=== PATIENT | female | born 1970 | race Hispanic/Latino ===

== ENCOUNTER 2017-12-28 14:39 | Observation (INO) | payer OTHER ==
[2017-12-28 14:39] VITALS: BMI 23.0
--- NOTE | 2017-12-28 16:00 | C.PDOC ---
History Of Present Illness 47yo female, history of anxiety, comes to ER with complaints of abdominal pain x 5 days. She also reports associated nausea, vomiting and non-bloody diarrhea. She states the pain initially started in her right back and now is present in her right abdomen. She denies any fever, chills, chest pain, and offers no additional medical complaints. Time Seen by Provider: 12/28/17 15:26 Chief Complaint (Nursing): Abdominal Pain History Per: Patient History/Exam Limitations: no limitations Onset/Duration Of Symptoms: Days (5) Current Symptoms Are (Timing): Still Present Location Of Pain/Discomfort: RUQ Quality Of Discomfort: Unable To Describe Associated Symptoms: Vomiting, Diarrhea. denies: Fever, Chills, Loss Of Appetite, Constipation, Urinary Symptoms Additional History Per: Patient Past Medical History Reviewed: Historical Data, Nursing Documentation, Vital Signs Vital Signs: Last Vital Signs Temp 98.9 F 12/28/17 19:01 Pulse 72 12/28/17 19:01 Resp 18 12/28/17 19:01 BP 131/93 H 12/28/17 19:01 Pulse Ox 100 12/28/17 19:36 - Medical History PMH: Anxiety Denies: Bipolar Disorder, Depression, Paranoia, Post Traumatic Stress Disorder, Schizophrenia Surgical History: No Surg Hx Family History: States: No Known Family Hx - Social History Hx Alcohol Use: Yes Hx Substance Use: Yes Review Of Systems Except As Marked, All Systems Reviewed And Found Negative. Constitutional: Negative for: Fever, Chills Cardiovascular: Negative for: Chest Pain Respiratory: Negative for: Shortness of Breath Gastrointestinal: Positive for: Vomiting, Abdominal Pain, Diarrhea. Negative for: Constipation, Hematochezia, Hematemesis Genitourinary: Negative for: Dysuria, Frequency, Hematuria Physical Exam - Physical Exam Appears: Non-toxic, No Acute Distress Skin: Normal Color, Warm, Dry Head: Atraumatic, Normacephalic Eye(s): bilateral: Normal Inspection, EOMI Neck: Normal ROM, Supple Chest: Symmetrical Cardiovascular: Rhythm Regular Respiratory: Normal Breath Sounds Gastrointestinal/Abdominal: Soft, Tenderness (Right upper quadrant tenderness, - Ly's sign), No Guarding, No Rebound Back: Normal Inspection, No CVA Tenderness Extremity: Normal ROM Neurological/Psych: Oriented x3 ED Course And Treatment - Laboratory Results Result Diagrams: 12/28/17 14:10 12/28/17 14:10 O2 Sat by Pulse Oximetry: 100 (RA) Pulse Ox Interpretation: Normal Medical Decision Making Medical Decision Making: Assessment: Abdominal pain Patient had US Abdomen on 11/13 which showed cholelithiasis. Plan: -- Labs -- UA -- US Abdominal -- Pepcid 20mg IV -- Toradol 30mg IV -- Zofran 4mg IV 1600 US Galbladder FINDINGS: LIVER: Measures 15.3 cm in length. Normal echogenicity of the liver parenchyma. No mass. No intrahepatic bile duct dilatation. GALLBLADDER: Gallbladder is distended. Cholelithiasis is identified within the lumen. No pericholecystic fluid, a reported sonographic Ly sign or other suspicious finding that may indicate cholecystitis however clinical correlation is recommended. COMMON BILE DUCT: Measures 3.1 mm. No stones. No dilatation. PANCREAS: Unremarkable as visualized. No mass. No ductal dilatation. RIGHT KIDNEY: Measures 9.8 cm in length. Normal echogenicity. No calculus, mass, or hydronephrosis. 1711 CT abdomen/pelvis w/ contrast ordered 1839 CT Abdomen/Pelvis FINDINGS: LOWER THORAX: Unremarkable. LIVER: Unremarkable. No gross lesion or ductal dilatation. GALLBLADDER AND BILE DUCTS: High density gallstones are seen. No evidence of acute cholecystitis or biliary obstruction. PANCREAS: Unremarkable. No gross lesion or ductal dilatation. SPLEEN: Unremarkable. ADRENALS: Unremarkable. No mass. KIDNEYS AND URETERS: Unremarkable. No hydronephrosis. No solid mass. VASCULATURE: Unremarkable. No aortic aneurysm. BOWEL: Suspicious for large bowel wall thickening. Correlate clinically for colitis. No evidence of small bowel obstruction. APPENDIX: No evidence of appendicitis. PERITONEUM: Unremarkable. No free fluid. No free air. LYMPH NODES: Unremarkable. No enlarged lymph nodes. BLADDER: Unremarkable. REPRODUCTIVE: Heterogeneous uterus likely contains fibroids. BONES: No acute fracture. OTHER FINDINGS: 1.7 centimeter fat containing umbilical ventral hernia is noted. IMPRESSION: Cholelithiasis without evidence of cholecystitis. Suspicious for large bowel wall thickening. Correlate clinically for colitis. No evidence of pancreatitis or appendicitis. Heterogeneous uterus likely contains fibroids. 1947 On re-evaluation, patient reports persistent nausea. Patient to be admitted to med-surg under hospitalist due to colitis, UTI and cholelithiasis. Disposition Discussed With : Adrian Boyce Doctor Will See Patient In The: Hospital Counseled Patient/Family Regarding: Studies Performed, Diagnosis - Disposition Disposition: HOSPITALIZED Disposition Time: 19:36 Condition: FAIR - Clinical Impression Clinical Impression: Colitis, UTI (urinary tract infection) - Scribe Statement The provider has reviewed the documentation as recorded by the Kenneth Marquis Provider Attestation: All medical record entries made by the Kenneth were at my direction and personally dictated by me. I have reviewed the chart and agree that the record accurately reflects my personal performance of the history, physical exam, medical decision making, and the department course for this patient. I have also personally directed, reviewed, and agree with the discharge instructions and disposition.
[2017-12-28 16:04] LABS: BASO # 0.1 K/uL (0.0-0.2); BASO % 0.5 % (0.0-2.0); HEMOGLOBIN 14.2 g/dL (11.0-16.0); LYMPH % 15.2 % (20.0-40.0); MEAN CELL VOLUME 93.9 fL (81.0-99.0); MEAN CORPUSCULAR HEMOGLOBIN 32.7 pg (27.0-31.0); MEAN CORPUSCULAR HGB CONC 34.8 g/dL (33.0-37.0); MEAN PLATELET VOLUME 8.8 fL (7.2-11.7); MONO # 1.1 K/uL (0.0-0.8); MONO % 8.1 % (0.0-10.0); NEUT % 76.2 % (50.0-75.0); RBC 4.35 Mil/uL (3.80-5.20); RED CELL DISTRIBUTION WIDTH 12.9 % (11.5-14.5); WHITE BLOOD COUNT 13.2 K/uL (4.8-10.8)
[2017-12-28 16:15] LABS: SQUAMOUS EPITHIAL 8 /hpf (0-5); URINE BACTERIA FEW (<OCC); URINE BILIRUBIN NEGATIVE (NEGATIVE); URINE BLOOD 1+ (NEGATIVE); URINE CLARITY Hazy (Clear); URINE COLOR Yellow (YELLOW); URINE GLUCOSE (UA) NORMAL (Normal); URINE LEUKOCYTE ESTERASE 1+ Leu/uL (Negative); URINE PROTEIN 1+ mg/dL (NEGATIVE); URINE UROBILINOGEN NORMAL mg/dL (0.2-1.0)
[2017-12-28 16:16] LABS: ALB/GLOB RATIO 1.7 (1.0-2.1); ALBUMIN 4.9 g/dL (3.5-5.0); ALT/SGPT 42 U/L (9-52); AST/SGOT 29 U/L (14-36); BLOOD UREA NITROGEN 15 mg/dL (7-17); CALCIUM 9.9 mg/dl (8.6-10.4); GFR AFRICAN-AMERICAN > 60; GFR NON-AFRICAN AMERICAN > 60; LIPASE 275 U/L (23-300)
[2017-12-28] MEDS ORDERED: Iohexol 350mg/ml 100 ML ONE (17:55)
--- NOTE | 2017-12-28 18:01 | US ---
Date of service: 12/28/2017 HISTORY: abd. pain COMPARISON: None. TECHNIQUE: Sonographic evaluation of the right upper quadrant of the abdomen. FINDINGS: LIVER: Measures 15.3 cm in length. Normal echogenicity of the liver parenchyma. No mass. No intrahepatic bile duct dilatation. GALLBLADDER: Gallbladder is distended. Cholelithiasis is identified within the lumen. No pericholecystic fluid, a reported sonographic Ly sign or other suspicious finding that may indicate cholecystitis however clinical correlation is recommended. COMMON BILE DUCT: Measures 3.1 mm. No stones. No dilatation. PANCREAS: Unremarkable as visualized. No mass. No ductal dilatation. RIGHT KIDNEY: Measures 9.8 cm in length. Normal echogenicity. No calculus, mass, or hydronephrosis. AORTA: No aneurysmal dilatation. IVC: Unremarkable. OTHER FINDINGS: None . IMPRESSION: Cholelithiasis identified within a distended gallbladder with the gallbladder otherwise unremarkable. Normal CBD caliber. No intrahepatic biliary dilatation or reported sonographic Ly sign. Remainder the examination appears unremarkable.
[2017-12-28] MEDS ORDERED: cefTRIAXone IV 1 gm in Dextros 50 ML IVPB ONE ×3 (18:03→18:32)
[2017-12-28] MEDS ORDERED: Potassium Chloride 20 mEq 100 ML ONE (18:03)
--- NOTE | 2017-12-28 18:41 | CT ---
Date of service: 12/28/2017 PROCEDURE: CT Abdomen and Pelvis with contrast HISTORY: abd. pain COMPARISON: Comparison is made to the previous same-day ultrasound of the right upper quadrant TECHNIQUE: Contrast dose: 100 mL Omnipaque 350. Axial and reformatted coronal and sagittal CT images of the abdomen and pelvis were obtained after IV and oral contrast administration. Radiation dose: Total exam DLP = 200.2 mGy-cm. This CT exam was performed using one or more of the following dose reduction techniques: Automated exposure control, adjustment of the mA and/or kV according to patient size, and/or use of iterative reconstruction technique. FINDINGS: LOWER THORAX: Unremarkable. LIVER: Unremarkable. No gross lesion or ductal dilatation. GALLBLADDER AND BILE DUCTS: High density gallstones are seen. No evidence of acute cholecystitis or biliary obstruction. PANCREAS: Unremarkable. No gross lesion or ductal dilatation. SPLEEN: Unremarkable. ADRENALS: Unremarkable. No mass. KIDNEYS AND URETERS: Unremarkable. No hydronephrosis. No solid mass. VASCULATURE: Unremarkable. No aortic aneurysm. BOWEL: Suspicious for large bowel wall thickening. Correlate clinically for colitis. No evidence of small bowel obstruction. APPENDIX: No evidence of appendicitis. PERITONEUM: Unremarkable. No free fluid. No free air. LYMPH NODES: Unremarkable. No enlarged lymph nodes. BLADDER: Unremarkable. REPRODUCTIVE: Heterogeneous uterus likely contains fibroids. BONES: No acute fracture. OTHER FINDINGS: 1.7 centimeter fat containing umbilical ventral hernia is noted. IMPRESSION: Cholelithiasis without evidence of cholecystitis. Suspicious for large bowel wall thickening. Correlate clinically for colitis. No evidence of pancreatitis or appendicitis. Heterogeneous uterus likely contains fibroids.
[2017-12-28] MEDS ORDERED: metroNIDAZOLE IV 500 mg/100 ml 500 MG/100 ML BAG IVPB STA (19:33)
[2017-12-28] MEDS ORDERED: metroNIDAZOLE IV 500 mg/100 ml 500 MG/100 ML BAG ONE (19:49)
--- NOTE | 2017-12-28 21:17 | CP.PCM.HP ---
<Radha Hodge - Last Filed: 12/29/17 04:01> History of Present Illness - History of Present Illness History of Present Illness: CC: Abdominal Pain HPI: Patient is a 47 year old female (LMP, 12/05/17), with history of cholelithiasis and anxiety, who presents to ED with bilateral lower abdominal pain and nausea that started last week Wednesday, (12/24/17). She has had 5 similar episodes in the last 2 years. Patient was seen at [facility] 2 days ago, with discharge ED diagnosis of colitis and cholelithiasis; she was discharge with script for imodium and "an antibiotic", which she did not fill. She says the pain often comes on about an hour after eating. In order to keep down what she consumes, patient has put herself on a liquid diet (water, pedialyte, gatorade) since the onset of this current episode. She denies taking any medications in attempts to alleviate her pain. Her pain is localized to the lower quadrants of her abdomen bilaterally with radiation to the RUQ. She describes a sequence to her symptoms, experiencing chills, then diarrhea, then non-billious vomiting. She has vomited 2-3 times per day since the onset of this episode. She smoked cannabis in attempts to relieve her symptoms, but found no relief. Her last menstrual period was 3 weeks ago; she has notice blood in her urine today, and is uncertain if she is on her period now. Patient admits to subjective fever, chills, palpitations, shortness of breath, abdominal pain, loose stool, nausea, vomiting, fatigue and lightheadedness. She denies chest pain, sick contact, recent sickness, urinary symptoms, hematochezia or dark stool. Code status: Full code, Proxy is her father ( Benjamin Tillman, ) PMD: None PMHx: Anxiety, ETOH abuse PSHx: Tubal ligation, reconstructive surgery of vagina/colon due to cyst (10 years ago) Family history * Grandfather: DM * Father: prostate cancer * Mother: ovarian cancer Medications: Denies Allergies: NKDA Social Hx: Lives alone, admits to > 20 years of tobacco use ( 4-5 cigarettes per day; quit 6 years ago), Binge drinking for a few years, sobriety for 6 years and daily marijuana use Present on Admission - Present on Admission Any Indicators Present on Admission: No Review of Systems - Constitutional Constitutional: Chills, Fatigue, Fever, Weakness. absent: Daytime Sleepiness, Headache, Increased Appetite - Cardiovascular Cardiovascular: Dyspnea, Lightheadedness, Palpitations. absent: Chest Pain, Chest Pain at Rest, Chest Pain with Activity, Diaphoresis, Dyspnea on Exertion, Irregular Heart Rhythm - Respiratory Respiratory: Dyspnea - Gastrointestinal Gastrointestinal: Abdominal Pain, Cramping, Diarrhea, Nausea, Vomiting. absent : Belching, Bloating, Change in Stool Character, Coffee Ground Emesis, Dysphagia , Fecal Incontinence, Hematochezia - Genitourinary Genitourinary: absent: Dysuria, Hematuria, Urinary Incontinence, Urinary Frequency, Urinary Hesitance, Urinary Urgency - Reproductive: Female Reproductive:Female: Cycle <21 Days - Musculoskeletal Musculoskeletal: absent: Muscle Weakness, Numbness, Stiffness - Integumentary Integumentary: absent: Rash, Jaundice - Neurological Neurological: Dizziness, Weakness - Psychiatric Psychiatric: Anxiety, Change in Appetite - Endocrine Endocrine: Fatigue, Palpitations Past Patient History - Infectious Disease Hx of Infectious Diseases: None - Tetanus Immunizations Tetanus Immunization: Unknown - Past Social History Smoking Status: Former Smoker - MUSCULOSKELETAL/RHEUMATOLOGICAL Hx Falls: No - PSYCHIATRIC Hx Anxiety: Yes Hx Bipolar Disorder: No Hx Depression: No Hx Paranoia: No Hx Post Traumatic Stress Disorder: No Hx Schizophrenia: No Hx Substance Use: Yes - SURGICAL HISTORY Hx Surgeries: Yes (vaginal cyst) - ANESTHESIA Hx Anesthesia: Yes Meds Allergies/Adverse Reactions: Allergies Allergy/AdvReac Type Severity Reaction Status Date / Time No Known Allergies Allergy Verified 12/28/17 14:48 Physical Exam - Constitutional Appears: No Acute Distress - Head Exam Head Exam: ATRAUMATIC, NORMAL INSPECTION - Eye Exam Eye Exam: EOMI, Normal appearance, PERRL - ENT Exam ENT Exam: Mucous Membranes Moist - Respiratory Exam Respiratory Exam: Clear to Auscultation Bilateral, NORMAL BREATHING PATTERN. absent: Chest Wall Tenderness, Decreased Breath Sounds, Rhonchi, Wheezes, Respiratory Distress - Cardiovascular Exam Cardiovascular Exam: REGULAR RHYTHM, +S1, +S2. absent: Tachycardia, Clicks, Diastolic murmur - GI/Abdominal Exam GI & Abdominal Exam: Soft, Tenderness Additional comments: Bilateral Lower abdomen tenderness on deep palpation Right sided abdomen tenderness deep palpation Negative ly sign - Extremities Exam Extremities exam: Positive for: normal inspection. Negative for: calf tenderness, pedal edema - Back Exam Back exam: NORMAL INSPECTION. absent: CVA tenderness (L), CVA tenderness (R) - Neurological Exam Neurological exam: Alert, CN II-XII Intact, Oriented x3 - Psychiatric Exam Psychiatric exam: Anxious - Skin Skin Exam: Normal Color Results - Vital Signs Recent Vital Signs: Last Vital Signs Temp 98.9 F 12/28/17 19:01 Pulse 72 12/28/17 19:01 Resp 18 12/28/17 19:01 BP 131/93 H 12/28/17 19:01 Pulse Ox 100 12/28/17 20:16 - Labs Result Diagrams: 12/28/17 14:10 12/28/17 14:10 Labs: Laboratory Results - last 24 hr 12/28/17 12/28/17 12/28/17 14:10 14:10 14:10 WBC 13.2 H RBC 4.35 Hgb 14.2 Hct 40.9 MCV 93.9 MCH 32.7 H MCHC 34.8 RDW 12.9 Plt Count 399 MPV 8.8 Neut % (Auto) 76.2 H Lymph % (Auto) 15.2 L [place] % (Auto) 8.1 Eos % (Auto) 0.0 Baso % (Auto) 0.5 Neut # (Auto) 10.0 H Lymph # (Auto) 2.0 [place] # (Auto) 1.1 H Eos # (Auto) 0.0 Baso # (Auto) 0.1 Sodium 136 Potassium 3.0 L Chloride 94 L Carbon Dioxide 28 Anion Gap 17 BUN 15 Creatinine 0.8 Est GFR ( Amer) > 60 Est GFR (Non-Af Amer) > 60 Random Glucose 113 H Calcium 9.9 Total Bilirubin 1.1 AST 29 ALT 42 Alkaline Phosphatase 61 Total Protein 7.8 Albumin 4.9 Globulin 2.9 Albumin/Globulin Ratio 1.7 Lipase 275 Urine Color Yellow Urine Clarity Hazy Urine pH 7.0 Ur Specific [place] 1.021 Urine Protein 1+ H Urine Glucose (UA) Normal Urine Ketones 1+ H Urine Blood 1+ H Urine Nitrate Positive H Urine Bilirubin Negative Urine Urobilinogen Normal Ur Leukocyte Esterase 1+ H Urine WBC (Auto) 11 H Urine RBC (Auto) 20 H Ur Squamous Epith Cells 8 H Urine Bacteria Few H Assessment & Plan (1) Colitis Assessment and Plan: Imaging: Abdomen/Pelvis IV contrast: Cholelithiasis without evidence of cholecystitis. Suspicious for large bowel wall thickening. Correlate clinically for colitis. No evidence of pancreatitis or appendicitis. Heterogeneous uterus likely contains fibroids.1.7 centimeter fat containing umbilical ventral hernia is noted Medications: * Cipro 400mg IV Q12H * Flagyl 500mg IV Q8H * NS @ 100mls/hr * Florastor 250mg PO BID Status: Acute (2) Leukocytosis Assessment and Plan: Possiblt secondary to colitis On admission: * WBC: 13.2 Medications: * Cipro 400mg IV Q12H * Flagyl 500mg IV Q8H * NS @ 100mls/hr * Florastor 250mg PO BID Continue to trend with am labs Status: Acute (3) UTI (urinary tract infection) Assessment and Plan: On admission: * UA: +1LE, +Nitrate * F/u urine culture Medications: * Cipro 400mg IV Q12H * NS @ 100mls/hr * Florastor 250mg PO BID Status: Acute (4) Cholelithiasis Assessment and Plan: Labs: * Liver enzymes WNL Imaging: * Gallbladder US: Cholelithiasis identified within a distended gallbladder with the gallbladder otherwise unremarkable. Normal CBD caliber. No intrahepatic biliary dilatation or reported sonographic Ly sign. Remainder the examination appears unremarkable. Mildly symptomatic, consideration for surgical evaluation for possible elective cholecystectomy Status: Acute (5) Nausea & vomiting Assessment and Plan: Zofran 4mg IV Q6H PRN Status: Acute (6) Diarrhea Assessment and Plan: F/u stool culture, ova/parasite, stool leukocytes, C-diff Status: Acute (7) Prophylactic measure Assessment and Plan: GI: Pepcid 20mg PO BID DVT: SCDs All plans and management discussed with Dr. Boyce Status: Acute <Adrian Boyce - Last Filed: 12/29/17 06:25> Results - Vital Signs Recent Vital Signs: Last Vital Signs Temp 98.9 F 12/28/17 23:45 Pulse 70 12/28/17 23:45 Resp 20 12/28/17 23:45 BP 130/72 12/28/17 23:45 Pulse Ox 98 12/28/17 23:45 - Labs Result Diagrams: 12/28/17 14:10 12/28/17 14:10 Labs: Laboratory Results - last 24 hr 12/28/17 12/28/17 12/28/17 14:10 14:10 14:10 WBC 13.2 H RBC 4.35 Hgb 14.2 Hct 40.9 MCV 93.9 MCH 32.7 H MCHC 34.8 RDW 12.9 Plt Count 399 MPV 8.8 Neut % (Auto) 76.2 H Lymph % (Auto) 15.2 L [place] % (Auto) 8.1 Eos % (Auto) 0.0 Baso % (Auto) 0.5 Neut # (Auto) 10.0 H Lymph # (Auto) 2.0 [place] # (Auto) 1.1 H Eos # (Auto) 0.0 Baso # (Auto) 0.1 Sodium 136 Potassium 3.0 L Chloride 94 L Carbon Dioxide 28 Anion Gap 17 BUN 15 Creatinine 0.8 Est GFR ( Amer) > 60 Est GFR (Non-Af Amer) > 60 Random Glucose 113 H Calcium 9.9 Total Bilirubin 1.1 AST 29 ALT 42 Alkaline Phosphatase 61 Total Protein 7.8 Albumin 4.9 Globulin 2.9 Albumin/Globulin Ratio 1.7 Lipase 275 Urine Color Yellow Urine Clarity Hazy Urine pH 7.0 Ur Specific [place] 1.021 Urine Protein 1+ H Urine Glucose (UA) Normal Urine Ketones 1+ H Urine Blood 1+ H Urine Nitrate Positive H Urine Bilirubin Negative Urine Urobilinogen Normal Ur Leukocyte Esterase 1+ H Urine WBC (Auto) 11 H Urine RBC (Auto) 20 H Ur Squamous Epith Cells 8 H Urine Bacteria Few H Assessment & Plan - Date & Time Date: 12/29/17 (I have seen and examined the patient. I agree with the findings and plan of care as documented by Dr. Hodge. Patient with colitis and UTI. Nausea and vomiting. Cipro and flagyl for now. Urine and blood cultures. Symptomatic treatment. Monitor for acute changes.) Time: 06:24 Attending/Attestation - Attestation I have personally seen and examined this patient.: Yes I have fully participated in the care of the patient.: Yes I have reviewed all pertinent clinical information: Yes
[2017-12-28] MEDS: Ciprofloxacin 400mg/200ml D5W 400 MG/200 ML BAG IVPB SCH (23:44)
[2017-12-28 23:47] VITALS: RESP 20
[2017-12-29] MEDS: Sodium Chloride 0.9% 1,000 ML IV SCH ×3 (00:12→13:33)
[2017-12-29] MEDS: metroNIDAZOLE IV 500 mg/100 ml 500 MG/100 ML BAG IVPB SCH ×3 (03:55→20:00)
[2017-12-29] MEDS ORDERED: Alum-Mag Hydrox-Simethicone Susp (30 mL) PO ONE (05:05)
--- NOTE | 2017-12-29 07:14 | CP.PCM.PN ---
<Trina Rebolledo V - Last Filed: 12/29/17 16:47> Objective - Vital Signs/Intake and Output Vital Signs (last 24 hours): Temp Pulse Resp BP Pulse Ox 98.4 F 61 20 136/85 99 12/29/17 15:30 12/29/17 15:30 12/29/17 15:30 12/29/17 15:30 12/29/17 15:30 - Medications Medications: Current Medications Enoxaparin Sodium (Lovenox) 40 mg SC DAILY [facility] Last Admin: 12/29/17 09:45 Dose: Not Given Famotidine (Pepcid) 20 mg PO BID [facility] Last Admin: 12/29/17 10:48 Dose: 20 mg Ciprofloxacin (Cipro 400mg/200ml Dsw) 400 mg in 200 mls @ 133 mls/hr IVPB Q12H ANGELINA PRN Reason: Protocol Last Admin: 12/29/17 14:49 Dose: 133 mls/hr Metronidazole (Flagyl) 500 mg in 100 mls @ 100 mls/hr IVPB Q8H ANGELINA PRN Reason: Protocol Last Admin: 12/29/17 12:31 Dose: 100 mls/hr Sodium Chloride (Sodium Chloride 0.9%) 1,000 mls @ 100 mls/hr IV .Q10H [facility] Last Admin: 12/29/17 13:33 Dose: 100 mls/hr Ondansetron HCl (Zofran Inj) 4 mg IVP Q6H PRN PRN Reason: Nausea/Vomiting Last Admin: 12/29/17 13:29 Dose: 4 mg Pneumococcal Polyvalent Vaccine (Pneumovax 23 Vaccine) 0.5 ml IM .ONCE ONE Stop: 12/30/17 10:01 Saccharomyces Boulardii (Florastor) 250 mg PO BID [facility] Last Admin: 12/29/17 10:48 Dose: 250 mg - Labs Labs: 12/29/17 07:33 12/29/17 07:33 Attending/Attestation - Attestation I have personally seen and examined this patient.: Yes I have fully participated in the care of the patient.: Yes I have reviewed all pertinent clinical information, including history, physical exam and plan: Yes Notes (Text): Patient seen, examined and case discussed with medical sales associate. Patient reports she has abdominal pain and nausea since she was recently evaluated at [facility] on Wednesday and discharged with Immodium and antibiotic. Patient denies any preciptating factors to cause her colitis. She denies any recent foods, denies take out foods, denies radiation, denies recent travel, and denies sick contacts. She reports unintentional weight loss about 10lbs. Patient reports she has had recurrent bouts of colitis this year wherein she has had to go to the hospital but has not seen a GI doctor for the recommended colonoscopy because she does have insurance. I did remind her to take the antibiotics if she has an infectious cause to her colitis. She is aware she has abnormal thickening associated with large bowel but she has not taken antibiotic. She reports since leaving the hospital ER on Wednesday, she felt dry, weak, has not had a bowel movement nor urine output. Patient reports she does feel anxious and does use cannabis about 1/8th ounce. She does not report any cyclic behavior in terms of nausea/vomitting in related to her cannabis but i did not advise her that this does not help her current problem. I have asked GI to assess patient since there is no clear etiology to her initial colitis. We have ordered for stool studies including ova and parasite, culture, and c. dif. General surgery has evaluated patient, no intervention at this time note. On my exam, patient does not have inspiratory arrest. I did explain to her she does have gallstones that can cause pain in the gallblader, but if that changes in frequency or she has a fever, that would require emergent surgery intervention which she understands. Patient denies symptoms of UTI, denies frequency, hematuria nor dysuria. Patient reports she has had bilateral tubal ligation in the past. I have also asked psych to evaluate her anxiety in light of her reliance on cannabis since she is currently not on any anti anxiolytics. Assessment/Plan (1) Colitis Assessment and Plan: * GI (Dr. Ambrocio) occupational therapist rehab manager-->help appreciated * Case discussed with GI fellow, will see the patient. * Abdomen/Pelvis IV contrast: Cholelithiasis without evidence of cholecystitis. Suspicious for large bowel wall thickening. Correlate clinically for colitis. * No evidence of pancreatitis or appendicitis. Heterogeneous uterus likely contains fibroids.1.7 centimeter fat containing umbilical ventral hernia is noted * Medications: * Cipro 400mg IV Q12H * Flagyl 500mg IV Q8H * NS @ 100mls/hr * Florastor 250mg PO BID * Follow-up stool studies Status: Acute (2) Leukocytosis Assessment and Plan: * Possible secondary to colitis * Patient is on IV abx to cover for colitis Medications: * Cipro 400mg IV Q12H * Flagyl 500mg IV Q8H * NS @ 100mls/hr * Florastor 250mg PO BID Status: Acute (3) Asymptomatic Bacturia Assessment and Plan: * Patient is not symptomatic of urinary tract infection * UA is contaminated sample; have repeated sample * Patient is on IV abx which would cover UTI if she was symptomatic * Florastor 250mg PO BID Status: Acute (4) Biliary Colic Cholelithiasis Assessment and Plan: * General surgery (Dr. Anderson)-->help appreciated * No acute intervention at this time * Imaging: Gallbladder US: Cholelithiasis identified within a distended gallbladder with the gallbladder otherwise unremarkable. Normal CBD caliber. No intrahepatic biliary dilatation or reported sonographic Ly sign. Remainder the examination appears unremarkable. Status: chronic (5) Nausea & vomiting Assessment and Plan: * Zofran 4mg IV Q6H PRN nausea * Patient reports nausea no vomitting episodes Status: Acute (6) Diarrhea Assessment and Plan: * F/u stool culture, ova/parasite, stool leukocytes, C-diff * patient reports diarrhea only on Wednesday but has not diarrheal episodes since the initial onset; will continue to monitor Status: Acute (7) Anxiety Assessment and Plan: * Psych (Dr. Gould) occupational therapist rehab manager-->help appreciated * f/u recommendations (8) Prophylactic measure Assessment and Plan: * GI ppx: Pepcid 20mg PO BID * DVT pxx: SCDs * NS 100cc/hr <Patrice Sagastume - Last Filed: 12/29/17 18:00> Subjective - Date & Time of Evaluation Date of Evaluation: 12/29/17 Time of Evaluation: 07:14 - Subjective Subjective: Medicine not for Dr. Rebolledo Pt seen and examined at bedside. Pt reports nausea, headache, dizziness and anxiety that comes with episodes of SOB. pt reports vomiting and diarrhea has stopped since yesterday. She reports being able to produces a small solid stool sample this morning. She reports persistent abdominal pain. Pt denies and chest pain, night sweats, fevers or loss of conscience. Objective - Vital Signs/Intake and Output Vital Signs (last 24 hours): Temp Pulse Resp BP Pulse Ox 98.9 F 70 20 130/72 98 12/28/17 23:45 12/28/17 23:45 12/28/17 23:45 12/28/17 23:45 12/28/17 23:45 - Medications Medications: Current Medications Famotidine (Pepcid) 20 mg PO BID [facility] Ciprofloxacin (Cipro 400mg/200ml Dsw) 400 mg in 200 mls @ 133 mls/hr IVPB Q12H ANGELINA PRN Reason: Protocol Last Admin: 12/28/17 23:44 Dose: 133 mls/hr Metronidazole (Flagyl) 500 mg in 100 mls @ 100 mls/hr IVPB Q8H ANGELINA PRN Reason: Protocol Last Admin: 12/29/17 03:55 Dose: 100 mls/hr Sodium Chloride (Sodium Chloride 0.9%) 1,000 mls @ 100 mls/hr IV .Q10H [facility] Last Admin: 12/29/17 00:12 Dose: 100 mls/hr Ondansetron HCl (Zofran Inj) 4 mg IVP Q6H PRN PRN Reason: Nausea/Vomiting Last Admin: 12/29/17 04:06 Dose: 4 mg Saccharomyces Boulardii (Florastor) 250 mg PO BID [facility] - Labs Labs: 12/28/17 14:10 12/28/17 14:10 - Constitutional Appears: Well, Non-toxic, No Acute Distress - Head Exam Head Exam: ATRAUMATIC, NORMAL INSPECTION - Eye Exam Eye Exam: EOMI, Normal appearance - ENT Exam ENT Exam: Mucous Membranes Moist - Respiratory Exam Respiratory Exam: Clear to Ausculation Bilateral, NORMAL BREATHING PATTERN. absent: Rales, Rhonchi, Respiratory Distress - Cardiovascular Exam Cardiovascular Exam: RRR, +S1, +S2 - GI/Abdominal Exam GI & Abdominal Exam: Soft, Tenderness, Normal Bowel Sounds. absent: Distended, Firm Additional comments: tenderness on deep palpation of RUQ - Extremities Exam Extremities Exam: Normal Inspection. absent: Joint Swelling, Pedal Edema, Tenderness - Back Exam Back Exam: NORMAL INSPECTION - Neurological Exam Neurological Exam: Alert, Awake, Oriented x3 - Psychiatric Exam Psychiatric exam: Anxious - Skin Skin Exam: Dry, Normal Color, Warm Assessment and Plan - Assessment and Plan (Free Text) Assessment: 47 yo Female with h/o cholelithiasis, colitis presenting with anxiety, abdominal pain, and nausea. Plan: Colitis -GI consulted: Dr Espinal recomendations- - Cont Cipro+Metronidazole - F/u stool infectious studies - Ordered Full Liquid Diet - Agree with Surgery consult, may benefit from cholecystectomy - Cont supportive care - Outpatient Colonoscopy in 8 week if able -Abdomen/Pelvis IV contrast: Cholelithiasis without evidence of cholecystitis. Suspicious for large bowel wall thickening. Correlate clinically for colitis. No evidence of pancreatitis or appendicitis. Heterogeneous uterus likely contains fibroids.1.7 centimeter fat containing umbilical ventral hernia is noted -Cipro 400mg IV Q12H started 12/28 -Flagyl 500mg IV Q8H started 12/28 -NS @ 100mls/hr -Florastor 250mg PO BID Cholelithiasis -Gallbladder US: Cholelithiasis identified within a distended gallbladder with the gallbladder otherwise unremarkable. Normal CBD caliber. No intrahepatic biliary dilatation or reported sonographic Ly sign. Remainder the examination appears unremarkable. -Mildly symptomatic, consideration for surgical evaluation for possible elective cholecystectomy Leukocytosis -Possibly secondary to colitis -WBC: 11 -Cipro 400mg IV Q12H -Flagyl 500mg IV Q8H -NS @ 100mls/hr -Florastor 250mg PO BID -Continue to trend with am labs UTI (urinary tract infection) -UA: +1LE, +Nitrate -urine culture pending -Cipro 400mg IV Q12H -IVF NS 100mls/hr -Florastor 250mg PO BID Nausea & vomiting: -Zofran 4mg IV Q6H PRN Diarrhea resolved Prophylactic measure -GI: Pepcid 20mg PO BID -DVT: SCDs disposition: Pt currently undergoing IV abx for collitits, f/u stool and urine cultures
[2017-12-29 07:53] LABS: BASO % 0.4 % (0.0-2.0); EOS % 0.1 % (0.0-4.0); HEMOGLOBIN 13.4 g/dL (11.0-16.0); LYMPH # 1.7 K/uL (1.0-4.3); LYMPH % 15.8 % (20.0-40.0); MEAN CELL VOLUME 93.7 fL (81.0-99.0); MEAN CORPUSCULAR HGB CONC 35.2 g/dL (33.0-37.0); MONO % 9.3 % (0.0-10.0); NEUT # 8.2 K/uL (1.8-7.0); NEUT % 74.4 % (50.0-75.0); RBC 4.07 Mil/uL (3.80-5.20); RED CELL DISTRIBUTION WIDTH 12.3 % (11.5-14.5)
[2017-12-29 08:10] LABS: ALB/GLOB RATIO 1.7 (1.0-2.1); ALBUMIN 4.3 g/dL (3.5-5.0); ALT/SGPT 38 U/L (9-52); AST/SGOT 28 U/L (14-36); BLOOD UREA NITROGEN 12 mg/dL (7-17); CALCIUM 8.9 mg/dl (8.6-10.4); GFR AFRICAN-AMERICAN > 60; GFR NON-AFRICAN AMERICAN > 60
--- NOTE | 2017-12-29 09:07 | CP.PCM.CON ---
History of Present Illness - History of Present Illness History of Present Illness: Ms. Tillman is a 47yoF with PMH of anxiety, EtOH abuse, gallstones complaining today of diffuse abdominal pain worst in the LLQ>RUQ. The intermittent pain has come and gone for the last week, and she's been hospitalized for it multiple times over the last 2 years and [facility], [facility], and [facility]. The pain has increased over the last 3 days, leading her to vomit at least 5 times a day. The vomit is the color of what she has been eating and has become water and green since she has stopped eating. She describes the pain as being on fire, starting from a back, and radiating inside toward the front, grading it a 8/10 at its worst. She tried Imodium, Pepto bismol, mint and jeremiah tea, smoking marijuana to no avail in relieving the pain. She complains of additional suprapubic cramping that she associates with her period starting yesterday. Admits chills, fatigue, decreased appetite, nausea, vomiting, diarrhea. Denies fever, headache, changes in vision or hearing , CP, palpitations, cough, swelling, sick contacts. Review of Systems - Constitutional Constitutional: Chills, Fatigue, Lethargy, Malaise. absent: Excessive Sweating , Fever, Frequent Falls, Headache - EENT Eyes: absent: Blurred Vision, Change in Vision, Diplopia, Discharge, Loss of Peripheral Vision, Loss of Vision Ears: absent: Decreased Hearing, Tinnitus Nose/Mouth/Throat: absent: Nasal Trauma, Bleeding Gums, Dry Mouth, Dysphagia, Tongue Swelling - Cardiovascular Cardiovascular: Dyspnea. absent: Chest Pain, Chest Pain at Rest, Dyspnea on Exertion, Edema, Pain Radiating to Arm/Neck/Jaw, Lightheadedness, Palpitations - Respiratory Respiratory: absent: Cough, Dyspnea, Pain on Inspiration - Gastrointestinal Gastrointestinal: Constipation, Diarrhea, Nausea, Vomiting. absent: Coffee Ground Emesis, Hematochezia, Melena - Genitourinary Genitourinary: absent: Difficulty Urinating, Dysuria, Hematuria, Pyuria, Urinary Urgency - Musculoskeletal Musculoskeletal: absent: Joint Swelling, Myalgias, Neck Pain, Numbness, Tingling - Integumentary Integumentary: absent: Change in Nails, Dry Skin, Sores, Swelling - Neurological Neurological: Weakness. absent: Confusion, Disequilibrium, Dizziness, Headaches , Tingling - Psychiatric Psychiatric: Anxiety, Panic Attacks. absent: Depression, Hallucinations, Mood Swings - Endocrine Endocrine: Fatigue. absent: Flushing, Palpitations - Hematologic/Lymphatic Hematologic: absent: Easy Bleeding, Easy Bruising Past Patient History - Infectious Disease Hx of Infectious Diseases: None - Tetanus Immunizations Tetanus Immunization: Unknown - Past Social History Smoking Status: Former Smoker Alcohol: None Drugs: Cannabis - MUSCULOSKELETAL/RHEUMATOLOGICAL Hx Falls: No - PSYCHIATRIC Hx Anxiety: Yes Hx Bipolar Disorder: No Hx Depression: No Hx Paranoia: No Hx Post Traumatic Stress Disorder: No Hx Schizophrenia: No Hx Substance Use: Yes - SURGICAL HISTORY Hx Surgeries: Yes (vaginal cyst) - ANESTHESIA Hx Anesthesia: Yes Meds Allergies/Adverse Reactions: Allergies Allergy/AdvReac Type Severity Reaction Status Date / Time No Known Allergies Allergy Verified 12/28/17 14:48 - Medications Medications: Current Medications Enoxaparin Sodium (Lovenox) 40 mg SC DAILY [facility] Famotidine (Pepcid) 20 mg PO BID [facility] Ciprofloxacin (Cipro 400mg/200ml Dsw) 400 mg in 200 mls @ 133 mls/hr IVPB Q12H ANGELINA PRN Reason: Protocol Last Admin: 12/28/17 23:44 Dose: 133 mls/hr Metronidazole (Flagyl) 500 mg in 100 mls @ 100 mls/hr IVPB Q8H ANGELINA PRN Reason: Protocol Last Admin: 12/29/17 03:55 Dose: 100 mls/hr Sodium Chloride (Sodium Chloride 0.9%) 1,000 mls @ 100 mls/hr IV .Q10H [facility] Last Admin: 12/29/17 00:12 Dose: 100 mls/hr Ondansetron HCl (Zofran Inj) 4 mg IVP Q6H PRN PRN Reason: Nausea/Vomiting Last Admin: 12/29/17 04:06 Dose: 4 mg Saccharomyces Boulardii (Florastor) 250 mg PO BID [facility] Physical Exam - Constitutional Appears: Non-toxic, No Acute Distress - Head Exam Head Exam: ATRAUMATIC, NORMOCEPHALIC - Eye Exam Eye Exam: EOMI, Normal appearance - ENT Exam ENT Exam: Mucous Membranes Dry - Neck Exam Neck exam: Positive for: Normal Inspection. Negative for: Lymphadenopathy - Respiratory Exam Respiratory Exam: Clear to Auscultation Bilateral, NORMAL BREATHING PATTERN. absent: Rales, Rhonchi - Cardiovascular Exam Cardiovascular Exam: REGULAR RHYTHM, +S1, +S2. absent: Systolic Murmur - GI/Abdominal Exam GI & Abdominal Exam: Distended, Hyperactive Bowel Sounds, Soft, Tenderness. absent: Firm, Guarding, Rebound Additional comments: tenderness to superficial and deep palpation LLQ>RUQ appropriate tympani throughout unable to elicit Ly's sign - able to take full inspiration without splinting negative obturator sign, negative - Extremities Exam Extremities exam: Positive for: full ROM, normal capillary refill, normal inspection - Back Exam Back exam: absent: CVA tenderness (L), CVA tenderness (R) - Neurological Exam Neurological exam: Alert, Normal Gait, Oriented x3, Reflexes Normal - Psychiatric Exam Psychiatric exam: Anxious - Skin Skin Exam: Dry, Intact, Pallor, Warm Results - Vital Signs Recent Vital Signs: Last Vital Signs Temp 98.3 F 12/29/17 08:40 Pulse 62 12/29/17 08:40 Resp 20 12/29/17 08:40 BP 150/92 H 12/29/17 08:40 Pulse Ox 99 12/29/17 08:40 - Labs Result Diagrams: 12/29/17 07:33 12/29/17 07:33 Labs: Laboratory Results - last 24 hr 12/28/17 12/28/17 12/28/17 14:10 14:10 14:10 WBC 13.2 H RBC 4.35 Hgb 14.2 Hct 40.9 MCV 93.9 MCH 32.7 H MCHC 34.8 RDW 12.9 Plt Count 399 MPV 8.8 Neut % (Auto) 76.2 H Lymph % (Auto) 15.2 L Sawyer % (Auto) 8.1 Eos % (Auto) 0.0 Baso % (Auto) 0.5 Neut # (Auto) 10.0 H Lymph # (Auto) 2.0 Sawyer # (Auto) 1.1 H Eos # (Auto) 0.0 Baso # (Auto) 0.1 Sodium 136 Potassium 3.0 L Chloride 94 L Carbon Dioxide 28 Anion Gap 17 BUN 15 Creatinine 0.8 Est GFR ( Amer) > 60 Est GFR (Non-Af Amer) > 60 Random Glucose 113 H Calcium 9.9 Phosphorus Magnesium Total Bilirubin 1.1 AST 29 ALT 42 Alkaline Phosphatase 61 Total Protein 7.8 Albumin 4.9 Globulin 2.9 Albumin/Globulin Ratio 1.7 Lipase 275 Urine Color Yellow Urine Clarity Hazy Urine pH 7.0 Ur Specific [place] 1.021 Urine Protein 1+ H Urine Glucose (UA) Normal Urine Ketones 1+ H Urine Blood 1+ H Urine Nitrate Positive H Urine Bilirubin Negative Urine Urobilinogen Normal Ur Leukocyte Esterase 1+ H Urine WBC (Auto) 11 H Urine RBC (Auto) 20 H Ur Squamous Epith Cells 8 H Urine Bacteria Few H 12/29/17 12/29/17 07:33 07:33 WBC 11.0 H RBC 4.07 Hgb 13.4 Hct 38.2 MCV 93.7 MCH 33.0 H MCHC 35.2 RDW 12.3 Plt Count 344 MPV 9.0 Neut % (Auto) 74.4 Lymph % (Auto) 15.8 L [place]yer % (Auto) 9.3 Eos % (Auto) 0.1 Baso % (Auto) 0.4 Neut # (Auto) 8.2 H Lymph # (Auto) 1.7 Sawyer # (Auto) 1.0 H Eos # (Auto) 0.0 Baso # (Auto) 0.0 Sodium 134 Potassium 3.4 L Chloride 99 Carbon Dioxide 20 L Anion Gap 18 BUN 12 Creatinine 0.7 Est GFR ( Amer) > 60 Est GFR (Non-Af Amer) > 60 Random Glucose 101 Calcium 8.9 Phosphorus 3.2 Magnesium 1.9 Total Bilirubin 1.0 AST 28 ALT 38 Alkaline Phosphatase 46 Total Protein 6.9 Albumin 4.3 Globulin 2.5 Albumin/Globulin Ratio 1.7 Lipase Urine Color Urine Clarity Urine pH Ur Specific [place] Urine Protein Urine Glucose (UA) Urine Ketones Urine Blood Urine Nitrate Urine Bilirubin Urine Urobilinogen Ur Leukocyte Esterase Urine WBC (Auto) Urine RBC (Auto) Ur Squamous Epith Cells Urine Bacteria Assessment & Plan - Assessment and Plan (Free Text) Plan: 47F with cholelithiasis without evidence of cholecystitis Imaging shows no signs of acute cholecystitis Unable to elicit physical exam findings indicative of cholecystitis Should consider outpt elective cholecystectomy to prevent future biliary colic pain episodes no acute surgical intervention at this time medical management per primary f/u GI recs for colitis - cont with abx for now consider psych recommendation for anxiety will follow until cultures return remain NPO on IV [id number] maintenance fluids bowel rest advance diet as tolerated d/w Dr. Monica Matthew PGY1 - Date & Time Date: 12/29/17 Time: 08:00
[2017-12-29] MEDS ORDERED: Potassium Chloride 20 mEq ER Tab PO ONE (09:23)
[2017-12-29] MEDS: Enoxaparin 40 mg Syringe SC SCH (09:45)
[2017-12-29 10:21] LABS: HCG,QUALITATIVE URINE NEGATIVE (NEGATIVE)
[2017-12-29 10:36] LABS: SQUAMOUS EPITHIAL 12 /hpf (0-5); URINE AMORPHOUS SEDIMENT FEW /ul (<OCC); URINE BACTERIA OCC (<OCC); URINE BILIRUBIN NEGATIVE (NEGATIVE); URINE BLOOD 2+ (NEGATIVE); URINE CLARITY Hazy (Clear); URINE COLOR Yellow (YELLOW); URINE GLUCOSE (UA) NORMAL (Normal); URINE LEUKOCYTE ESTERASE TRACE Leu/uL (Negative); URINE PROTEIN 1+ mg/dL (NEGATIVE); URINE UROBILINOGEN NORMAL mg/dL (0.2-1.0)
[2017-12-29] MEDS: Saccharomyces Boulardi 250 mg Cap PO SCH ×2 (10:48→17:36)
[2017-12-29] MEDS: Ciprofloxacin 400mg/200ml D5W 400 MG/200 ML BAG IVPB SCH ×3 (11:34→23:53)
[2017-12-29 12:45] LABS: C DIFF TOXIN A B NEGATIVE (NEGATIVE)
--- NOTE | 2017-12-29 13:32 | CP.PCM.CON ---
<JefersonPhilippe - Last Filed: 12/29/17 14:40> History of Present Illness - History of Present Illness History of Present Illness: PGY-4 GI Fellow Initial Consult Note Mrs. Tillman is a 47 yo WF with h/o Anxiety, Cholelithiasis and Colitis presenting with abdominal pain and diarrhea. She states she has been having bouts of "Colitis" where she has burning abdominal pain, mostly in her lower quadrants, associate with nausea, lightheadedness and diarrhea. She states diarrhea is mostly watery or brown, but thinks a few times there may have been blood. Usually she cannot identify and precipitating or alleviating factors, but she reports that symptoms this time around seemed to be worse about 1 hr after eating. She states symptomg are nearly constant for days and eventually get better on their own; unsure if antibiotics that she is often given help or not. She has tried marijuana without help. She denied any change in diet, recent travel nor antibiotic use. She does report some recent stress after her daughter recently returned from rehab and her symptoms began shortly thereafter. She denies any melena, hematochezia, hematemesis, vision changes, eye pain, rashes, oral ulcers or joint pain. She has been told she needs a colonoscopy but has never followed through due to lack of insurance. Recently, she was [place] [facility] diagnosed with colitis and cholelithiasis and given a prescription for immodium and unknown antibiotic which she did not fill, again due to insurance issue. She subsequently presented to [facility] for further evaluation. Since admission, her diarrhea has slowed and her main complaint at this time is persistent nausea. 12 point ROS negative other than stated above MHx: See above SurgHx: Tubal ligation, Cyst removal between colon and vagina (no colon removed) . Meds: None as OP FamHx: Mother with Ovarian CA, Father with Prostate CA SocHx: H/o tobacco and EtOH Abuse but sober for years, + MJ All: NKDA Past Patient History - Infectious Disease Hx of Infectious Diseases: None - Tetanus Immunizations Tetanus Immunization: Unknown - Past Social History Smoking Status: Former Smoker Alcohol: None Drugs: Cannabis - MUSCULOSKELETAL/RHEUMATOLOGICAL Hx Falls: No - PSYCHIATRIC Hx Anxiety: Yes Hx Bipolar Disorder: No Hx Depression: No Hx Paranoia: No Hx Post Traumatic Stress Disorder: No Hx Schizophrenia: No Hx Substance Use: Yes - SURGICAL HISTORY Hx Surgeries: Yes (vaginal cyst) - ANESTHESIA Hx Anesthesia: Yes Meds Allergies/Adverse Reactions: Allergies Allergy/AdvReac Type Severity Reaction Status Date / Time No Known Allergies Allergy Verified 12/28/17 14:48 - Medications Medications: Current Medications Enoxaparin Sodium (Lovenox) 40 mg SC DAILY [facility] Last Admin: 12/29/17 09:45 Dose: Not Given Famotidine (Pepcid) 20 mg PO BID [facility] Last Admin: 12/29/17 10:48 Dose: 20 mg Ciprofloxacin (Cipro 400mg/200ml Dsw) 400 mg in 200 mls @ 133 mls/hr IVPB Q12H [facility] PRN Reason: Protocol Last Admin: 12/29/17 11:34 Dose: Not Given Metronidazole (Flagyl) 500 mg in 100 mls @ 100 mls/hr IVPB Q8H [facility] PRN Reason: Protocol Last Admin: 12/29/17 03:55 Dose: 100 mls/hr Sodium Chloride (Sodium Chloride 0.9%) 1,000 mls @ 100 mls/hr IV .Q10H [facility] Last Admin: 12/29/17 09:59 Dose: Not Given Ondansetron HCl (Zofran Inj) 4 mg IVP Q6H PRN PRN Reason: Nausea/Vomiting Last Admin: 12/29/17 04:06 Dose: 4 mg Pneumococcal Polyvalent Vaccine (Pneumovax 23 Vaccine) 0.5 ml IM .ONCE ONE Stop: 12/30/17 10:01 Saccharomyces Boulardii (Florastor) 250 mg PO BID [facility] Last Admin: 12/29/17 10:48 Dose: 250 mg Physical Exam - Constitutional Appears: Non-toxic, No Acute Distress - Head Exam Head Exam: ATRAUMATIC, NORMAL INSPECTION - Eye Exam Eye Exam: EOMI. absent: Conjunctival injection, Scleral icterus - ENT Exam ENT Exam: Mucous Membranes Dry, Normal External Ear Exam. absent: Mucous Membranes Moist - Respiratory Exam Respiratory Exam: Clear to Auscultation Bilateral, NORMAL BREATHING PATTERN. absent: Accessory Muscle Use, Wheezes, Stridor - Cardiovascular Exam Cardiovascular Exam: REGULAR RHYTHM, RRR. absent: Bradycardia, Tachycardia, Systolic Murmur - GI/Abdominal Exam GI & Abdominal Exam: Normal Bowel Sounds, Organomegaly, Soft, Tenderness (ttp in LLQ w/o guarding). absent: Bruit, Diminished Bowel Sounds, Distended, Firm, Guarding, Hernia, Hyperactive Bowel Sounds, Hypoactive Bowel Sounds, Mass, Pulsatile Mass, Rebound, Rigid - Rectal Exam Rectal Exam: Deferred - Extremities Exam Extremities exam: Positive for: normal inspection. Negative for: pedal edema - Neurological Exam Neurological exam: Alert, CN II-XII Intact, Oriented x3 - Psychiatric Exam Psychiatric exam: Normal Affect, Normal Mood - Skin Skin Exam: Normal Color, Warm Results - Vital Signs Recent Vital Signs: Last Vital Signs Temp 98.3 F 12/29/17 08:40 Pulse 62 12/29/17 08:40 Resp 20 12/29/17 08:40 BP 150/92 H 12/29/17 08:40 Pulse Ox 99 12/29/17 08:40 - Labs Result Diagrams: 12/29/17 07:33 12/29/17 07:33 Labs: Laboratory Results - last 24 hr 12/28/17 12/28/17 12/28/17 14:10 14:10 14:10 WBC 13.2 H RBC 4.35 Hgb 14.2 Hct 40.9 MCV 93.9 MCH 32.7 H MCHC 34.8 RDW 12.9 Plt Count 399 MPV 8.8 Neut % (Auto) 76.2 H Lymph % (Auto) 15.2 L Castro % (Auto) 8.1 Eos % (Auto) 0.0 Baso % (Auto) 0.5 Neut # (Auto) 10.0 H Lymph # (Auto) 2.0 Castro # (Auto) 1.1 H Eos # (Auto) 0.0 Baso # (Auto) 0.1 Sodium 136 Potassium 3.0 L Chloride 94 L Carbon Dioxide 28 Anion Gap 17 BUN 15 Creatinine 0.8 Est GFR ( Amer) > 60 Est GFR (Non-Af Amer) > 60 Random Glucose 113 H Calcium 9.9 Phosphorus Magnesium Total Bilirubin 1.1 AST 29 ALT 42 Alkaline Phosphatase 61 Total Protein 7.8 Albumin 4.9 Globulin 2.9 Albumin/Globulin Ratio 1.7 Lipase 275 Urine Color Yellow Urine Clarity Hazy Urine pH 7.0 Ur Specific [place] 1.021 Urine Protein 1+ H Urine Glucose (UA) Normal Urine Ketones 1+ H Urine Blood 1+ H Urine Nitrate Positive H Urine Bilirubin Negative Urine Urobilinogen Normal Ur Leukocyte Esterase 1+ H Urine WBC (Auto) 11 H Urine RBC (Auto) 20 H Ur Squamous Epith Cells 8 H Amorphous Sediment Urine Bacteria Few H Urine HCG, Qual C. difficile Ag & Toxin 12/28/17 12/29/17 12/29/17 Unknown 07:33 07:33 WBC 11.0 H RBC 4.07 Hgb 13.4 Hct 38.2 MCV 93.7 MCH 33.0 H MCHC 35.2 RDW 12.3 Plt Count 344 MPV 9.0 Neut % (Auto) 74.4 Lymph % (Auto) 15.8 L Castro % (Auto) 9.3 Eos % (Auto) 0.1 Baso % (Auto) 0.4 Neut # (Auto) 8.2 H Lymph # (Auto) 1.7 Castro # (Auto) 1.0 H Eos # (Auto) 0.0 Baso # (Auto) 0.0 Sodium 134 Potassium 3.4 L Chloride 99 Carbon Dioxide 20 L Anion Gap 18 BUN 12 Creatinine 0.7 Est GFR ( Amer) > 60 Est GFR (Non-Af Amer) > 60 Random Glucose 101 Calcium 8.9 Phosphorus 3.2 Magnesium 1.9 Total Bilirubin 1.0 AST 28 ALT 38 Alkaline Phosphatase 46 Total Protein 6.9 Albumin 4.3 Globulin 2.5 Albumin/Globulin Ratio 1.7 Lipase Urine Color Urine Clarity Urine pH Ur Specific [place] Urine Protein Urine Glucose (UA) Urine Ketones Urine Blood Urine Nitrate Urine Bilirubin Urine Urobilinogen Ur Leukocyte Esterase Urine WBC (Auto) Urine RBC (Auto) Ur Squamous Epith Cells Amorphous Sediment Urine Bacteria Urine HCG, Qual C. difficile Ag & Toxin Negative 12/29/17 10:02 WBC RBC Hgb Hct MCV MCH MCHC RDW Plt Count MPV Neut % (Auto) Lymph % (Auto) Castro % (Auto) Eos % (Auto) Baso % (Auto) Neut # (Auto) Lymph # (Auto) Castro # (Auto) Eos # (Auto) Baso # (Auto) Sodium Potassium Chloride Carbon Dioxide Anion Gap BUN Creatinine Est GFR ( Amer) Est GFR (Non-Af Amer) Random Glucose Calcium Phosphorus Magnesium Total Bilirubin AST ALT Alkaline Phosphatase Total Protein Albumin Globulin Albumin/Globulin Ratio Lipase Urine Color Yellow Urine Clarity Hazy Urine pH 7.0 Ur Specific [place] 1.027 Urine Protein 1+ H Urine Glucose (UA) Normal Urine Ketones 2+ H Urine Blood 2+ H Urine Nitrate Negative Urine Bilirubin Negative Urine Urobilinogen Normal Ur Leukocyte Esterase Trace Urine WBC (Auto) 13 H Urine RBC (Auto) 6 H Ur Squamous Epith Cells 12 H Amorphous Sediment Few H Urine Bacteria Occ H Urine HCG, Qual Negative C. difficile Ag & Toxin Assessment & Plan - Assessment and Plan (Free Text) Assessment: 47 yo WF with h/o cholelithiasis, colitis presenting with abdominal pain, losse stools and nausea. # Abd Pain, Diarrhea, Nausea: All likely related to colitis seen on CT. Unclear etiology at this point but given recurrent episode over last few years of mostly watery diarrhea raises concerns for IBD, more likely Crohns. IBS also possible with recent stress trigger, but organic disease seen on CT which is not compatible and stress can be trigger for IBD. Infectious colitis also possible but the recurrent nature is atypical. Would benefit from colonoscopy down the line. Plan: - Cont Cipro+Metronidazole - F/u stool infectious studies - Ordered Full Liquid Diet - Agree with Surgery consult, may benefit from cholecystectomy - Cont supportive care - Outpatient Colonoscopy in 8 week if able Pt seen and examined with Dr. Daigle <Thien Daigle - Last Filed: 12/29/17 17:12> Meds - Medications Medications: Current Medications Enoxaparin Sodium (Lovenox) 40 mg SC DAILY [facility] Last Admin: 12/29/17 09:45 Dose: Not Given Famotidine (Pepcid) 20 mg PO BID [facility] Last Admin: 12/29/17 10:48 Dose: 20 mg Ciprofloxacin (Cipro 400mg/200ml Dsw) 400 mg in 200 mls @ 133 mls/hr IVPB Q12H [facility] PRN Reason: Protocol Last Admin: 12/29/17 14:49 Dose: 133 mls/hr Metronidazole (Flagyl) 500 mg in 100 mls @ 100 mls/hr IVPB Q8H [facility] PRN Reason: Protocol Last Admin: 12/29/17 12:31 Dose: 100 mls/hr Sodium Chloride (Sodium Chloride 0.9%) 1,000 mls @ 100 mls/hr IV .Q10H [facility] Last Admin: 12/29/17 13:33 Dose: 100 mls/hr Ondansetron HCl (Zofran Inj) 4 mg IVP Q6H PRN PRN Reason: Nausea/Vomiting Last Admin: 12/29/17 13:29 Dose: 4 mg Pneumococcal Polyvalent Vaccine (Pneumovax 23 Vaccine) 0.5 ml IM .ONCE ONE Stop: 12/30/17 10:01 Saccharomyces Boulardii (Florastor) 250 mg PO BID [facility] Last Admin: 12/29/17 10:48 Dose: 250 mg Results - Vital Signs Recent Vital Signs: Last Vital Signs Temp 98.4 F 12/29/17 15:30 Pulse 61 12/29/17 15:30 Resp 20 12/29/17 15:30 BP 136/85 12/29/17 15:30 Pulse Ox 99 12/29/17 15:30 - Labs Result Diagrams: 12/29/17 07:33 12/29/17 07:33 Labs: Laboratory Results - last 24 hr 12/28/17 12/29/17 12/29/17 Unknown 07:33 07:33 WBC 11.0 H RBC 4.07 Hgb 13.4 Hct 38.2 MCV 93.7 MCH 33.0 H MCHC 35.2 RDW 12.3 Plt Count 344 MPV 9.0 Neut % (Auto) 74.4 Lymph % (Auto) 15.8 L Castro % (Auto) 9.3 Eos % (Auto) 0.1 Baso % (Auto) 0.4 Neut # (Auto) 8.2 H Lymph # (Auto) 1.7 Castro # (Auto) 1.0 H Eos # (Auto) 0.0 Baso # (Auto) 0.0 Sodium 134 Potassium 3.4 L Chloride 99 Carbon Dioxide 20 L Anion Gap 18 BUN 12 Creatinine 0.7 Est GFR ( Amer) > 60 Est GFR (Non-Af Amer) > 60 Random Glucose 101 Calcium 8.9 Phosphorus 3.2 Magnesium 1.9 Total Bilirubin 1.0 AST 28 ALT 38 Alkaline Phosphatase 46 Total Protein 6.9 Albumin 4.3 Globulin 2.5 Albumin/Globulin Ratio 1.7 Urine Color Urine Clarity Urine pH Ur Specific [place] Urine Protein Urine Glucose (UA) Urine Ketones Urine Blood Urine Nitrate Urine Bilirubin Urine Urobilinogen Ur Leukocyte Esterase Urine WBC (Auto) Urine RBC (Auto) Ur Squamous Epith Cells Amorphous Sediment Urine Bacteria Urine HCG, Qual Stool Leukocytes, Qual Negative C. difficile Ag & Toxin Negative 12/29/17 10:02 WBC RBC Hgb Hct MCV MCH MCHC RDW Plt Count MPV Neut % (Auto) Lymph % (Auto) Castro % (Auto) Eos % (Auto) Baso % (Auto) Neut # (Auto) Lymph # (Auto) Castro # (Auto) Eos # (Auto) Baso # (Auto) Sodium Potassium Chloride Carbon Dioxide Anion Gap BUN Creatinine Est GFR ( Amer) Est GFR (Non-Af Amer) Random Glucose Calcium Phosphorus Magnesium Total Bilirubin AST ALT Alkaline Phosphatase Total Protein Albumin Globulin Albumin/Globulin Ratio Urine Color Yellow Urine Clarity Hazy Urine pH 7.0 Ur Specific [place] 1.027 Urine Protein 1+ H Urine Glucose (UA) Normal Urine Ketones 2+ H Urine Blood 2+ H Urine Nitrate Negative Urine Bilirubin Negative Urine Urobilinogen Normal Ur Leukocyte Esterase Trace Urine WBC (Auto) 13 H Urine RBC (Auto) 6 H Ur Squamous Epith Cells 12 H Amorphous Sediment Few H Urine Bacteria Occ H Urine HCG, Qual Negative Stool Leukocytes, Qual C. difficile Ag & Toxin Attending/Attestation - Attestation I have personally seen and examined this patient.: Yes I have fully participated in the care of the patient.: Yes I have reviewed all pertinent clinical information: Yes Notes (Text): 12/29/17 17:07 I have seen and examined patient with GI fellow. Agree with above documentation with the following additions. In brief, this is a 47 year old female with history of anxiety who presents to hospital with complaint of abdominal pain and diarrhea. She describes recent symptoms over the past 1 week and endorses up to 4 loose watery bowel movements daily along with crampy epigastric abdominal pain. She also reports nausea but denies vomiting, fever/ chills, rectal bleeding, recent antibiotic use, travel, or sick contacts. She does report a 7 pound weight loss over the past 6 months and also claims to have had similar bouts of diarrhea 3-4 times during this time period. She was recommended to undergo endoscopic evaluation but never followed through on this. She recently went to [facility] and was diagnosed with "colitis" but did not take antibiotic therapy due to inability to afford medication. No prior endoscopic evaluation. Anxiety Abdominal pain, diarrhea - colitis CT imaging reviewed by me showing colitis - unclear etiology but given repeated episodes over past few months inflammatory disease would be a consideration - Liquid diet as tolerated - Continue with antibiotic therapy - Follow up stool studies - Patient would eventually benefit from colonoscopy 6-8 weeks following resolution of acute symptoms. Will continue to monitor patient clinical course.
--- NOTE | 2017-12-29 15:46 | PCM.PSYCH ---
Initial Psychiatric Evaluation - Initial Psychiatric Evaluation Type of Admission: Voluntary Legal Status: Capacity Chief Complaint (in patient's own words): "I feel really anxious" History of Present Illness and Precipitating Events: HPI: Patient is a 47 year old single female with history of anxiety who was admitted for abdominal pain. Psychiatry was consulted for severe anxiety. She states she tends to feel anxious when she has any physical issues. She admits that she has been under some stress recently. She states that her daughter recently return from rehab for substance abuse 3 weeks ago. Now states she feels very anxious and overwhelmed. She states that Xanax doesn't work for her, however Ativan does work for her. She states she has never taken any medication consistently for her anxiety. She states she typically goes to the gym when she feels anxious, typically goes to the gym 3 times a week. She states she has had panic attacks in the past. She does admit to a history of alcohol abuse in the past, however states she has been sober for 6 years. She denies feeling depressed. She denies feeling paranoid, denies auditory or visual hallucinations. She denies racing thoughts. She denies any plan to harm herself or others. Past psychiatric admissions: [place] [facility] [place] for [place]. Has had prior admission for alcohol abuse. PMH: anxiety PSH: vaginal cyst removal Social hx: (-) tobacco use. (+) history of alcohol use, has been sober for 6 years, (+) marijuana, few times this week. Currently works in business/finance. Single, has 2 children, aged 23 and 18 Family hx: history of DM and cancer. Mother has mental illness. States her entire family has anxiety Meds: none Allergies: NKDA Current Medications: Active Medications Generic Name Dose Route Start Last Admin Trade Name Freq PRN Reason Stop Dose Admin Enoxaparin Sodium 40 mg 12/29/17 10:12/29/17 09:45 Lovenox SC Not Given DAILY [facility] Famotidine 20 mg 12/29/17 10:12/29/17 10:48 Pepcid PO 20 mg BID [facility] Administration Ciprofloxacin 400 mg in 200 mls @ 133 mls/hr 12/28/17 23:30 12/29/17 14:49 Cipro 400mg/200ml Dsw IVPB 133 mls/hr Q12H [facility] Administration Protocol Metronidazole 500 mg in 100 mls @ 100 mls/hr 12/29/17 04:00 12/29/17 12:31 Flagyl IVPB 100 mls/hr Q8H [facility] Administration Protocol Sodium Chloride 1,000 mls @ 100 mls/hr 12/28/17 23:15 12/29/17 13:33 Sodium Chloride 0.9% IV 100 mls/hr .Q10H [facility] Administration Ondansetron HCl 4 mg 12/28/17 23:15 12/29/17 13:29 Zofran Inj IVP 4 mg Q6H PRN Administration Nausea/Vomiting Pneumococcal Polyvalent Vaccine 0.5 ml 12/30/17 10:00 Pneumovax 23 Vaccine IM 12/30/17 10:01 .ONCE ONE Saccharomyces Boulardii 250 mg 12/29/17 10:00 12/29/17 10:48 Florastor PO 250 mg BID [facility] Administration Past Psychiatric History - Past Psychiatric History Previous Treatment History: Inpatient Pertinent Medical Hx (Current Medical&Sleep Prob, Allergies): Allergies Allergy/AdvReac Type Severity Reaction Status Date / Time No Known Allergies Allergy Verified 12/28/17 14:48 No Known Home Med 12/28/17 Review of Systems - Psychiatric Psychiatric: Anxiety, Panic Attacks, Tactile Hallucinations. absent: Auditory Hallucinations, Depression, Homicidal Ideation, Paranoia, Suicidal Ideation, Visual Hallucinations Mental Status Examination - Personal Presentation Personal Presentation: Looks stated age - Affect Affect: Constricted - Motor Activity Motor Activity: Calm - Reliability in Providing Information Reliability in Providing Information: Fair - Speech Speech: Organized - Mood Mood: Anxious - Formal Thought Process Formal Thought Process: No Impairment - Hallucinations/Delusions Additional comments: No hallucinations No delusions - Obsessions/Compulsions Obsessions: No Compulsions: No - Cognitive Functions Orientation: Person, Place, Situation, Time Sensorium: Alert Attention/Concentration: Attentive Estimate of Intelligence: Average Memory: Recent intact, as evidence by: Ability to recall events of the day, Remote intact, as evidenced by: Ability to recall historical events - Risk Risk: Diminished functioning - Limitations Limitations: Living alone DSM 5 DX - DSM 5 DSM 5 Diagnosis: Generalized anxiety disorder - Recommended/Plan of Treatment Treatment Recommendations and Plan of Treatment: Continue to monitor patient Continue medical management Case discussed with Dr. Luis Fernando King, PGY1
[2017-12-29 16:37] LABS: FECAL LEUKOCYTES NEGATIVE (NEGATIVE)
[2017-12-30] MEDS: metroNIDAZOLE IV 500 mg/100 ml 500 MG/100 ML BAG IVPB SCH ×2 (05:00→13:00)
[2017-12-30] MEDS: Sodium Chloride 0.9% 1,000 ML IV SCH (05:14)
--- NOTE | 2017-12-30 06:32 | CP.PCM.PN ---
Subjective - Date & Time of Evaluation Date of Evaluation: 12/30/17 Time of Evaluation: 06:32 Objective - Vital Signs/Intake and Output Vital Signs (last 24 hours): Temp Pulse Resp BP Pulse Ox 99 F 58 L 20 159/88 H 99 12/30/17 00:00 12/30/17 00:00 12/30/17 00:00 12/30/17 00:00 12/30/17 00:00 Intake and Output: 12/29/17 12/30/17 18:59 06:59 Intake Total 900 Balance 900 - Medications Medications: Current Medications Enoxaparin Sodium (Lovenox) 40 mg SC DAILY [facility] Last Admin: 12/29/17 09:45 Dose: Not Given Famotidine (Pepcid) 20 mg PO BID [facility] Last Admin: 12/29/17 17:36 Dose: 20 mg Ciprofloxacin (Cipro 400mg/200ml Dsw) 400 mg in 200 mls @ 133 mls/hr IVPB Q12H [facility] PRN Reason: Protocol Last Admin: 12/29/17 23:53 Dose: 133 mls/hr Metronidazole (Flagyl) 500 mg in 100 mls @ 100 mls/hr IVPB Q8H [facility] PRN Reason: Protocol Last Admin: 12/30/17 05:00 Dose: 100 mls/hr Sodium Chloride (Sodium Chloride 0.9%) 1,000 mls @ 100 mls/hr IV .Q10H [facility] Last Admin: 12/30/17 05:14 Dose: 100 mls/hr Ondansetron HCl (Zofran Inj) 4 mg IVP Q6H PRN PRN Reason: Nausea/Vomiting Last Admin: 12/29/17 23:49 Dose: 4 mg Pneumococcal Polyvalent Vaccine (Pneumovax 23 Vaccine) 0.5 ml IM .ONCE ONE Stop: 12/30/17 10:01 Saccharomyces Boulardii (Florastor) 250 mg PO BID [facility] Last Admin: 12/29/17 17:36 Dose: 250 mg - Labs Labs: 12/29/17 07:33 12/29/17 07:33
[2017-12-30 07:36] LABS: BASO % 0.4 % (0.0-2.0); EOS % 0.2 % (0.0-4.0); HEMOGLOBIN 14.2 g/dL (11.0-16.0); LYMPH # 1.7 K/uL (1.0-4.3); LYMPH % 16.8 % (20.0-40.0); MEAN CELL VOLUME 93.2 fL (81.0-99.0); MEAN CORPUSCULAR HEMOGLOBIN 33.1 pg (27.0-31.0); MEAN CORPUSCULAR HGB CONC 35.5 g/dL (33.0-37.0); MEAN PLATELET VOLUME 8.5 fL (7.2-11.7); MONO # 0.8 K/uL (0.0-0.8); MONO % 7.5 % (0.0-10.0); NEUT # 7.7 K/uL (1.8-7.0); NEUT % 75.1 % (50.0-75.0); RBC 4.29 Mil/uL (3.80-5.20); RED CELL DISTRIBUTION WIDTH 12.5 % (11.5-14.5); WHITE BLOOD COUNT 10.2 K/uL (4.8-10.8)
--- NOTE | 2017-12-30 07:49 | CP.PCM.PN ---
Subjective - Date & Time of Evaluation Date of Evaluation: 12/30/17 Time of Evaluation: 06:45 - Subjective Subjective: General Surgery progress note for Dr. Calderón covering for Dr. Anderson Patient seen and examined this am at bedside. She endorses continuing LLQ abdominal pain and Nausea, vomiting and burping with FLD. She denies f/c/ diarrhea/ BM and flatus overnight. Last formed BM was yesterday. Objective - Vital Signs/Intake and Output Vital Signs (last 24 hours): Temp Pulse Resp BP Pulse Ox 99 F 58 L 20 159/88 H 99 12/30/17 00:00 12/30/17 00:00 12/30/17 00:00 12/30/17 00:00 12/30/17 00:00 Intake and Output: 12/30/17 12/30/17 06:59 18:59 Intake Total 900 Balance 900 - Medications Medications: Current Medications Enoxaparin Sodium (Lovenox) 40 mg SC DAILY [facility] Last Admin: 12/29/17 09:45 Dose: Not Given Famotidine (Pepcid) 20 mg PO BID [facility] Last Admin: 12/29/17 17:36 Dose: 20 mg Ciprofloxacin (Cipro 400mg/200ml Dsw) 400 mg in 200 mls @ 133 mls/hr IVPB Q12H [facility] PRN Reason: Protocol Last Admin: 12/29/17 23:53 Dose: 133 mls/hr Metronidazole (Flagyl) 500 mg in 100 mls @ 100 mls/hr IVPB Q8H [facility] PRN Reason: Protocol Last Admin: 12/30/17 05:00 Dose: 100 mls/hr Sodium Chloride (Sodium Chloride 0.9%) 1,000 mls @ 100 mls/hr IV .Q10H [facility] Last Admin: 12/30/17 05:14 Dose: 100 mls/hr Ondansetron HCl (Zofran Inj) 4 mg IVP Q6H [facility]N PRN Reason: Nausea/Vomiting Last Admin: 12/29/17 23:49 Dose: 4 mg Pneumococcal Polyvalent Vaccine (Pneumovax 23 Vaccine) 0.5 ml IM .ONCE ONE Stop: 12/30/17 10:01 Saccharomyces Boulardii (Florastor) 250 mg PO BID [facility] Last Admin: 12/29/17 17:36 Dose: 250 mg - Labs Labs: 12/30/17 07:33 12/29/17 07:33 - Constitutional Appears: Well, Non-toxic, No Acute Distress - Head Exam Head Exam: ATRAUMATIC, NORMOCEPHALIC - ENT Exam ENT Exam: Mucous Membranes Moist - Respiratory Exam Respiratory Exam: NORMAL BREATHING PATTERN - Cardiovascular Exam Cardiovascular Exam: +S1, +S2 - GI/Abdominal Exam GI & Abdominal Exam: Soft, Tenderness. absent: Firm, Guarding, Rigid, Rebound Additional comments: mild LLQ tenderness - Extremities Exam Extremities Exam: absent: Calf Tenderness, Pedal Edema - Psychiatric Exam Psychiatric exam: Normal Affect, Normal Mood - Skin Skin Exam: Dry, Intact, Normal Color, Warm Assessment and Plan - Assessment and Plan (Free Text) Assessment: 47 yr old female with Cholelithiasis (no signs of cholecystitis) and colitis Plan: -continue cipro and flagyl to complete 7 day course - N/v with FLD, remain on full liquids today and ADAT - No surgical intervention at this time - patient to follow up outpatient with GI for colonoscopy - plan discussed with Dr. Calderón, all further recs per him Anabel Denson, PGY 1
[2017-12-30 07:54] LABS: ALB/GLOB RATIO 1.7 (1.0-2.1); ALBUMIN 4.1 g/dL (3.5-5.0); ALT/SGPT 31 U/L (9-52); AST/SGOT 17 U/L (14-36); BLOOD UREA NITROGEN 10 mg/dL (7-17); CALCIUM 8.4 mg/dl (8.6-10.4); GFR AFRICAN-AMERICAN > 60; GFR NON-AFRICAN AMERICAN > 60
--- NOTE | 2017-12-30 08:45 | CP.PCM.PN ---
<Philippe Govea - Last Filed: 12/30/17 08:42> Subjective - Date & Time of Evaluation Date of Evaluation: 12/30/17 Time of Evaluation: 07:10 - Subjective Subjective: PGY-4 GI Fellow Prog Note Pt lying in bed when seen this AM. States still with some nausea. Last BM yesrterday was formed. 5 point ROS negative other than stated above Objective - Vital Signs/Intake and Output Vital Signs (last 24 hours): Temp Pulse Resp BP Pulse Ox 98.1 F 60 20 156/88 H 100 12/30/17 07:00 12/30/17 07:00 12/30/17 07:00 12/30/17 07:00 12/30/17 07:00 Intake and Output: 12/30/17 12/30/17 06:59 18:59 Intake Total 900 800 Balance 900 800 - Medications Medications: Current Medications Enoxaparin Sodium (Lovenox) 40 mg SC DAILY [facility] Last Admin: 12/29/17 09:45 Dose: Not Given Famotidine (Pepcid) 20 mg PO BID [facility] Last Admin: 12/29/17 17:36 Dose: 20 mg Ciprofloxacin (Cipro 400mg/200ml Dsw) 400 mg in 200 mls @ 133 mls/hr IVPB Q12H ANGELINA PRN Reason: Protocol Last Admin: 12/29/17 23:53 Dose: 133 mls/hr Metronidazole (Flagyl) 500 mg in 100 mls @ 100 mls/hr IVPB Q8H ANGELINA PRN Reason: Protocol Last Admin: 12/30/17 05:00 Dose: 100 mls/hr Sodium Chloride (Sodium Chloride 0.9%) 1,000 mls @ 100 mls/hr IV .Q10H [facility] Last Admin: 12/30/17 05:14 Dose: 100 mls/hr Ondansetron HCl (Zofran Inj) 4 mg IVP Q6H PRN PRN Reason: Nausea/Vomiting Last Admin: 12/29/17 23:49 Dose: 4 mg Pneumococcal Polyvalent Vaccine (Pneumovax 23 Vaccine) 0.5 ml IM .ONCE ONE Stop: 12/30/17 10:01 Saccharomyces Boulardii (Florastor) 250 mg PO BID [facility] Last Admin: 12/29/17 17:36 Dose: 250 mg - Labs Labs: 12/30/17 07:33 12/30/17 07:33 - Constitutional Appears: Non-toxic, No Acute Distress - Head Exam Head Exam: ATRAUMATIC, NORMAL INSPECTION - Eye Exam Eye Exam: EOMI. absent: Conjunctival injection, Scleral icterus - Respiratory Exam Respiratory Exam: Wheezes, NORMAL BREATHING PATTERN. absent: Accessory Muscle Use, Prolonged Expiratory Phase - GI/Abdominal Exam GI & Abdominal Exam: Soft, Normal Bowel Sounds. absent: Bruit, Distended, Firm , Guarding, Rigid, Tenderness, Pulsatile Mass, Rebound Assessment and Plan - Assessment and Plan (Free Text) Assessment: 47 yo WF with h/o cholelithiasis, colitis presenting with abdominal pain, losse stools and nausea. # Abd Pain, Diarrhea, Nausea: All likely related to colitis seen on CT. Unclear etiology at this point but given recurrent episode over last few years of mostly watery diarrhea raises concerns for IBD, more likely Crohns. IBS also possible with recent stress trigger, but organic disease seen on CT which is not compatible and stress can be trigger for IBD. Infectious colitis also possible but the recurrent nature is atypical. Would benefit from colonoscopy down the line. Plan: Plan: - Cont Cipro+Metronidazole, to complete 7 day course - F/u stool infectious studies - Ordered Full Liquid Diet, can ADAT - Agree with Surgery consult, may benefit from cholecystectomy - Cont supportive care - Outpatient Colonoscopy in 8 weeks if able Pt seen and examined with Dr. Daigle Thank you for the consult, will sign off. Please page if questions. <Thien Daigle - Last Filed: 12/30/17 13:53> Objective - Vital Signs/Intake and Output Vital Signs (last 24 hours): Temp Pulse Resp BP Pulse Ox 98.1 F 60 20 156/88 H 100 12/30/17 07:00 12/30/17 07:00 12/30/17 07:00 12/30/17 07:00 12/30/17 07:00 Intake and Output: 12/30/17 12/30/17 06:59 18:59 Intake Total 900 800 Balance 900 800 - Medications Medications: Current Medications Enoxaparin Sodium (Lovenox) 40 mg SC DAILY [facility] Last Admin: 12/30/17 09:54 Dose: 40 mg Famotidine (Pepcid) 20 mg PO BID [facility] Last Admin: 12/30/17 09:55 Dose: 20 mg Ciprofloxacin (Cipro 400mg/200ml Dsw) 400 mg in 200 mls @ 133 mls/hr IVPB Q12H ANGELINA PRN Reason: Protocol Last Admin: 12/30/17 11:30 Dose: 133 mls/hr Metronidazole (Flagyl) 500 mg in 100 mls @ 100 mls/hr IVPB Q8H ANGELINA PRN Reason: Protocol Last Admin: 12/30/17 05:00 Dose: 100 mls/hr Sodium Chloride (Sodium Chloride 0.9%) 1,000 mls @ 100 mls/hr IV .Q10H [facility] Last Admin: 12/30/17 05:14 Dose: 100 mls/hr Ondansetron HCl (Zofran Inj) 4 mg IVP Q6H PRN PRN Reason: Nausea/Vomiting Last Admin: 12/29/17 23:49 Dose: 4 mg Saccharomyces Boulardii (Florastor) 250 mg PO BID [facility] Last Admin: 12/30/17 09:55 Dose: 250 mg - Labs Labs: 12/30/17 07:33 12/30/17 07:33 Attending/Attestation - Attestation I have personally seen and examined this patient.: Yes I have fully participated in the care of the patient.: Yes I have reviewed all pertinent clinical information, including history, physical exam and plan: Yes Notes (Text): 12/30/17 13:50 I have seen and examined patient with GI fellow. No acute events overnight, no bowel movements over the past 12 hours. She denies abdominal pain but continues to report nausea. Tolerating PO liquids without difficulty. Review of vitals from today shows elevated BP. Anxiety Abdominal pain - colitis, unclear etiology - Advance diet as tolerated - Continue with antibiotic therapy to complete 7 day course - Follow up stool studies - Given recurrent similar episodes, patient would benefit from outpatient colonoscopy following resolution of symptoms in order to evaluate for underlying inflammatory disease - No further planned GI interventions, will sign off case. Please reconsult as necessary, thank you.
[2017-12-30] MEDS: Enoxaparin 40 mg Syringe SC SCH (09:54)
[2017-12-30] MEDS: Saccharomyces Boulardi 250 mg Cap PO SCH (09:55)
[2017-12-30] MEDS ORDERED: Pneumococcal 23-Valent Vaccine IM ONE (10:00)
[2017-12-30] MEDS ORDERED: Promethazine 6.25 MG/5 ML CUP PO ONE (10:00)
--- NOTE | 2017-12-30 10:02 | CP.PCM.DIS ---
<Patrice Sagastume - Last Filed: 12/30/17 19:25> Provider - Provider Date of Admission: 12/28/17 19:47 Attending physician: Trina Rebolledo DO Time Spent in preparation of Discharge (in minutes): 45 Diagnosis - Discharge Diagnosis (1) Cholelithiasis Status: Chronic (2) Colitis Status: Acute Hospital Course - Lab Results Lab Results: Micro Results 12/29/17 08:50 Stool Stool Culture - Preliminary LACTOSE ADMINISTRATIVE JOB TITLES, SUB SELENITE BROTH. 12/29/17 08:40 Blood-Venous Blood Culture - Preliminary NO GROWTH AFTER 24 HOURS 12/29/17 07:00 Blood-Venous Blood Culture - Preliminary NO GROWTH AFTER 24 HOURS 12/28/17 17:31 Urine,Clean Catch Urine Culture - Preliminary Gram Positive Cocci Most Recent Lab Values WBC 10.2 K/uL (4.8-10.8) 12/30/17 07:33 RBC 4.29 Mil/uL (3.80-5.20) 12/30/17 07:33 Hgb 14.2 g/dL (11.0-16.0) 12/30/17 07:33 Hct 39.9 % (34.0-47.0) 12/30/17 07:33 MCV 93.2 fL (81.0-99.0) 12/30/17 07:33 MCH 33.1 pg (27.0-31.0) H 12/30/17 07:33 MCHC 35.5 g/dL (33.0-37.0) 12/30/17 07:33 RDW 12.5 % (11.5-14.5) 12/30/17 07:33 Plt Count 376 K/uL (130-400) 12/30/17 07:33 MPV 8.5 fL (7.2-11.7) 12/30/17 07:33 Neut % (Auto) 75.1 % (50.0-75.0) H 12/30/17 07:33 Lymph % (Auto) 16.8 % (20.0-40.0) L 12/30/17 07:33 Bailey % (Auto) 7.5 % (0.0-10.0) 12/30/17 07:33 Eos % (Auto) 0.2 % (0.0-4.0) 12/30/17 07:33 Baso % (Auto) 0.4 % (0.0-2.0) 12/30/17 07:33 Neut # (Auto) 7.7 K/uL (1.8-7.0) H 12/30/17 07:33 Lymph # (Auto) 1.7 K/uL (1.0-4.3) 12/30/17 07:33 Bailey # (Auto) 0.8 K/uL (0.0-0.8) 12/30/17 07:33 Eos # (Auto) 0.0 K/uL (0.0-0.7) 12/30/17 07:33 Baso # (Auto) 0.0 K/uL (0.0-0.2) 12/30/17 07:33 Sodium 132 mmol/L (132-148) 12/30/17 07:33 Potassium 3.4 mmol/L (3.6-5.2) L 12/30/17 07:33 Chloride 97 mmol/L (98-107) L 12/30/17 07:33 Carbon Dioxide 20 mmol/L (22-30) L 12/30/17 07:33 Anion Gap 18 (10-20) 12/30/17 07:33 BUN 10 mg/dL (7-17) 12/30/17 07:33 Creatinine 0.7 mg/dL (0.7-1.2) 12/30/17 07:33 Est GFR ( Amer) > 60 12/30/17 07:33 Est GFR (Non-Af Amer) > 60 12/30/17 07:33 Random Glucose 105 mg/dL (65-105) 12/30/17 07:33 Calcium 8.4 mg/dl (8.6-10.4) L 12/30/17 07:33 Phosphorus 3.0 mg/dL (2.5-4.5) 12/30/17 07:33 Magnesium 1.9 mg/dL (1.6-2.3) 12/30/17 07:33 Total Bilirubin 1.1 mg/dL (0.2-1.3) 12/30/17 07:33 AST 17 U/L (14-36) 12/30/17 07:33 ALT 31 U/L (9-52) 12/30/17 07:33 Alkaline Phosphatase 48 U/L (38-126) 12/30/17 07:33 Total Protein 6.5 g/dL (6.3-8.3) 12/30/17 07:33 Albumin 4.1 g/dL (3.5-5.0) 12/30/17 07:33 Globulin 2.4 gm/dL (2.2-3.9) 12/30/17 07:33 Albumin/Globulin Ratio 1.7 (1.0-2.1) 12/30/17 07:33 Lipase 275 U/L (23-300) 12/28/17 14:10 Urine Color Yellow (YELLOW) 12/29/17 10:02 Urine Clarity Hazy (Clear) 12/29/17 10:02 Urine pH 7.0 (5.0-8.0) 12/29/17 10:02 Ur Specific [place] 1.027 (1.003-1.030) 12/29/17 10:02 Urine Protein 1+ mg/dL (NEGATIVE) H 12/29/17 10:02 Urine Glucose (UA) Normal mg/dL (Normal) 12/29/17 10:02 Urine Ketones 2+ mg/dL (NEGATIVE) H 12/29/17 10:02 Urine Blood 2+ (NEGATIVE) H 12/29/17 10:02 Urine Nitrate Negative (NEGATIVE) 12/29/17 10:02 Urine Bilirubin Negative (NEGATIVE) 12/29/17 10:02 Urine Urobilinogen Normal mg/dL (0.2-1.0) 12/29/17 10:02 Ur Leukocyte Esterase Trace Laura/uL (Negative) 12/29/17 10:02 Urine WBC (Auto) 13 /hpf (0-5) H 12/29/17 10:02 Urine RBC (Auto) 6 /hpf (0-3) H 12/29/17 10:02 Ur Squamous Epith Cells 12 /hpf (0-5) H 12/29/17 10:02 Amorphous Sediment Few /ul (<OCC) H 12/29/17 10:02 Urine Bacteria Occ (<OCC) H 12/29/17 10:02 Urine HCG, Qual Negative (NEGATIVE) 12/29/17 10:02 Stool Leukocytes, Qual Negative (NEGATIVE) 12/28/17 Unknown C. difficile Ag & Toxin Negative (NEGATIVE) 12/28/17 Unknown - Hospital Course Hospital Course: History of Present Illness: CC: Abdominal Pain HPI: Patient is a 47 year old female (LMP, 12/05/17), with history of cholelithiasis and anxiety, who presents to ED with bilateral lower abdominal pain and nausea that started last week Wednesday, (12/24/17). She has had 5 similar episodes in the last 2 years. Patient was seen at [facility] 2 days ago, with discharge ED diagnosis of colitis and cholelithiasis; she was discharge with script for imodium and "an antibiotic", which she did not fill. She says the pain often comes on about an hour after eating. In order to keep down what she consumes, patient has put herself on a liquid diet (water, pedialyte, gatorade) since the onset of this current episode. She denies taking any medications in attempts to alleviate her pain. Her pain is localized to the lower quadrants of her abdomen bilaterally with radiation to the RUQ. She describes a sequence to her symptoms, experiencing chills, then diarrhea, then non-billious vomiting. She has vomited 2-3 times per day since the onset of this episode. She smoked cannabis in attempts to relieve her symptoms, but found no relief. Her last menstrual period was 3 weeks ago; she has notice blood in her urine today, and is uncertain if she is on her period now. Patient admits to subjective fever, chills, palpitations, shortness of breath, abdominal pain, loose stool, nausea, vomiting, fatigue and lightheadedness. She denies chest pain, sick contact, recent sickness, urinary symptoms, hematochezia or dark stool. Code status: Full code, Proxy is her father ( Benjamin Tillman, ) PMD: None PMHx: Anxiety, ETOH abuse PSHx: Tubal ligation, reconstructive surgery of vagina/colon due to cyst (10 years ago) Family history * Grandfather: DM * Father: prostate cancer * Mother: ovarian cancer Medications: Denies Allergies: NKDA Social Hx: Lives alone, admits to > 20 years of tobacco use ( 4-5 cigarettes per day; quit 6 years ago), Binge drinking for a few years, sobriety for 6 years and daily marijuana use Hospital Course: Pt arrived on 12/28 to the ED complaining of stomach pain, nausea vomitting and diarrhea. Pt was subsequently underwent CT scan of the abdomen and pelvis which showed large bowel thickening consistent with colitis. Blood culture, urine culture and ova parasite stool cultures showed no growth. GI was consulted and recommended completion of antibiotic course: Cipro 500mg BID 7 day and Flagyl 500mg TID 7days upon discharge, establish care at [facility] and set up outpatient colonoscopy in 8wks. Patient's nauseau Imaging: Abd CT: Cholelithiasis, no cholecystitis, large bowel wall thickening consistent with colitis Gallbladder U/S: Cholelithiasis with a distended gallbladder. Normal common bile duct diameter [facility]. Discharge Instructions: Patient is stable for discharcge. Pt is to complete home medications . Patient is to return to the emergency room if symptoms return. All instructions explained to the patient and he agrees. Discharge Diagnosis: cholelithiasis, large bowel colitis Discharge Exam - Head Exam Head Exam: ATRAUMATIC, NORMOCEPHALIC - Eye Exam Eye Exam: Normal appearance. absent: Periorbital swelling, Scleral icterus - ENT Exam ENT Exam: Mucous Membranes Moist, Normal Oropharynx - Respiratory Exam Respiratory Exam: NORMAL BREATHING PATTERN. absent: Decreased Breath Sounds, Wheezes, Respiratory Distress - Cardiovascular Exam Cardiovascular Exam: RRR, +S1, +S2. absent: Diastolic murmur, Systolic Murmur - GI/Abdominal Exam GI & Abdominal Exam: Normal Bowel Sounds, Soft, Tenderness (mild upon deep palpation of RUQ). absent: Distended Discharge Plan - Discharge Medications Prescriptions: Acidoph/L.bulg/Bif.b/S.thermop [Bacid Probiotic 5%-80%-10%-5%] 1 tab PO DAILY # 30 tab Ciprofloxacin HCl [Cipro] 500 mg PO BID #14 tablet Metronidazole [Flagyl] 500 mg PO TID #21 tablet RX: Promethazine [Phenergan Syrup] 12.5 mg PO Q6H PRN 5 Days cup PRN Reason: Nausea/Vomiting - Follow Up Plan Condition: STABLE Disposition: HOME/ ROUTINE Patient education suggested?: Yes Instructions: Diarrhea in Adolescents and Adults, Urinary Tract Infection in Women (DC) Additional Instructions: Patient is medically cleared to go home and has been cleared by GI and surgery from their standpoint. Patient is instructed to follow up in the [facility] with 1 week of discharge. Call [phone] to establish care at [facility] and obtain referral to a GI specialist Patient is to call Dr. Daigle's office to schedule for outpatient colonoscopy in 8 weeks. Patient advised if she has fever, chills, increasing abdominal pain to be evaluated immediately. Advised to maintain alcohol cesation Patient to be provided the following scripts on discharge Ciprofloxacin 500 BID 7 days Flagyl 500 TID 7 days Bacid 1 Tab daily 30 days Promethazine 12.5mg Q6hrs 5 days Referrals: Thien Daigle MD [Staff Provider] - Sana Galvan MD [Staff Provider] - <Trina Rebolledo V - Last Filed: 12/30/17 23:41> Provider - Provider Date of Admission: 12/28/17 19:47 Attending physician: Trina Rebolledo, Hospital Course - Lab Results Lab Results: Micro Results 12/28/17 17:31 Urine,Clean Catch Urine Culture - Final Coagulase Neg Staphylococcus 12/29/17 08:50 Stool Stool Culture - Final NO SALMONELLA, SHIGELLA OR CAMPYLOBACTER ISOLATED. 12/29/17 08:40 Blood-Venous Blood Culture - Preliminary NO GROWTH AFTER 24 HOURS 12/29/17 07:00 Blood-Venous Blood Culture - Preliminary NO GROWTH AFTER 24 HOURS Most Recent Lab Values WBC 10.2 K/uL (4.8-10.8) 12/30/17 07:33 RBC 4.29 Mil/uL (3.80-5.20) 12/30/17 07:33 Hgb 14.2 g/dL (11.0-16.0) 12/30/17 07:33 Hct 39.9 % (34.0-47.0) 12/30/17 07:33 MCV 93.2 fL (81.0-99.0) 12/30/17 07:33 MCH 33.1 pg (27.0-31.0) H 12/30/17 07:33 MCHC 35.5 g/dL (33.0-37.0) 12/30/17 07:33 RDW 12.5 % (11.5-14.5) 12/30/17 07:33 Plt Count 376 K/uL (130-400) 12/30/17 07:33 MPV 8.5 fL (7.2-11.7) 12/30/17 07:33 Neut % (Auto) 75.1 % (50.0-75.0) H 12/30/17 07:33 Lymph % (Auto) 16.8 % (20.0-40.0) L 12/30/17 07:33 Bailey % (Auto) 7.5 % (0.0-10.0) 12/30/17 07:33 Eos % (Auto) 0.2 % (0.0-4.0) 12/30/17 07:33 Baso % (Auto) 0.4 % (0.0-2.0) 12/30/17 07:33 Neut # (Auto) 7.7 K/uL (1.8-7.0) H 12/30/17 07:33 Lymph # (Auto) 1.7 K/uL (1.0-4.3) 12/30/17 07:33 Bailey # (Auto) 0.8 K/uL (0.0-0.8) 12/30/17 07:33 Eos # (Auto) 0.0 K/uL (0.0-0.7) 12/30/17 07:33 Baso # (Auto) 0.0 K/uL (0.0-0.2) 12/30/17 07:33 Sodium 132 mmol/L (132-148) 12/30/17 07:33 Potassium 3.4 mmol/L (3.6-5.2) L 12/30/17 07:33 Chloride 97 mmol/L (98-107) L 12/30/17 07:33 Carbon Dioxide 20 mmol/L (22-30) L 12/30/17 07:33 Anion Gap 18 (10-20) 12/30/17 07:33 BUN 10 mg/dL (7-17) 12/30/17 07:33 Creatinine 0.7 mg/dL (0.7-1.2) 12/30/17 07:33 Est GFR ( Amer) > 60 12/30/17 07:33 Est GFR (Non-Af Amer) > 60 12/30/17 07:33 Random Glucose 105 mg/dL (65-105) 12/30/17 07:33 Calcium 8.4 mg/dl (8.6-10.4) L 12/30/17 07:33 Phosphorus 3.0 mg/dL (2.5-4.5) 12/30/17 07:33 Magnesium 1.9 mg/dL (1.6-2.3) 12/30/17 07:33 Total Bilirubin 1.1 mg/dL (0.2-1.3) 12/30/17 07:33 AST 17 U/L (14-36) 12/30/17 07:33 ALT 31 U/L (9-52) 12/30/17 07:33 Alkaline Phosphatase 48 U/L (38-126) 12/30/17 07:33 Total Protein 6.5 g/dL (6.3-8.3) 12/30/17 07:33 Albumin 4.1 g/dL (3.5-5.0) 12/30/17 07:33 Globulin 2.4 gm/dL (2.2-3.9) 12/30/17 07:33 Albumin/Globulin Ratio 1.7 (1.0-2.1) 12/30/17 07:33 Lipase 275 U/L (23-300) 12/28/17 14:10 Urine Color Red (YELLOW) 12/30/17 14:15 Urine Clarity Hazy (Clear) 12/30/17 14:15 Urine pH 6.0 (5.0-8.0) 12/30/17 14:15 Ur Specific [place] 1.005 (1.003-1.030) 12/30/17 14:15 Urine Protein 1+ mg/dL (NEGATIVE) H 12/30/17 14:15 Urine Glucose (UA) Normal mg/dL (Normal) 12/30/17 14:15 Urine Ketones Trace mg/dL (NEGATIVE) 12/30/17 14:15 Urine Blood 3+ (NEGATIVE) H 12/30/17 14:15 Urine Nitrate Negative (NEGATIVE) 12/30/17 14:15 Urine Bilirubin Negative (NEGATIVE) 12/30/17 14:15 Urine Urobilinogen Normal mg/dL (0.2-1.0) 12/30/17 14:15 Ur Leukocyte Esterase 1+ Laura/uL (Negative) H 12/30/17 14:15 Urine WBC (Auto) 15 /hpf (0-5) H 12/30/17 14:15 Urine RBC (Auto) 12 /hpf (0-3) H 12/30/17 14:15 Ur Squamous Epith Cells 9 /hpf (0-5) H 12/30/17 14:15 Amorphous Sediment Few /ul (<OCC) H 12/29/17 10:02 Urine Bacteria Occ (<OCC) H 12/29/17 10:02 Urine HCG, Qual Negative (NEGATIVE) 12/29/17 10:02 Stool Leukocytes, Qual Negative (NEGATIVE) 12/28/17 Unknown C. difficile Ag & Toxin Negative (NEGATIVE) 12/28/17 Unknown Discharge Exam - GI/Abdominal Exam GI & Abdominal Exam: Tenderness (improved on exam; negative Ly's sign) Additional comments: no rigidity soft nondistended palpate stomach improved negative suprapubic tenderness - Extremities Exam Additional comments: no edema, no cyanosis no clubbing - Neurological Exam Neurological exam: Alert, Oriented x3 - Skin Skin Exam: Dry, Intact, Normal Color, Warm Attending/Attestation - Attestation I have personally seen and examined this patient.: Yes I have fully participated in the care of the patient.: Yes I have reviewed all pertinent clinical information, including history, physical exam and plan: Yes Notes (Text): Patient seen, examined and case discussed with medical affairs leader. Patient seen this morning. Patient reports she was nauseous; abated with PO Promethazine. Patient noted she is feeling better. She is urinating. She denies any dysuria, hematuria, nor frequency. She reports abdominal pain is improved. Patient advised to maintain liquid diet but to advance as tolerated. I did advised her "BRAT" diet in sense of bananas, rice, apple sauce, and toast, until she feels better. She is also amenable from refraining from coffee, tea, and continues to maintain sobriety from alcohol of 6 years. I did advise her that she will need to complete 7 days of PO antibiotics: Ciprofloxacin 400mg PO BID and Flagyl 500mg PO TID. She is aware of the side effect of Cipro regarding tendon pain and advised to stop if she experiences it and she is advised to not take alcohol with Flagyl given that she will throw up due to adverse reaction. Patient given 1 week supply of Promethazine 12.5mg PO Q6H as needed for nausea since it help to quell her nausea and lastly either a priobiotic yogurt in between her antibiotic dosing or probiotic tablet. I did strongly emphasize to her to maintain compliance on antibiotic therapy prior to further evaluation by GI in the future. Patient advised to follow-up and establish care in the [facility] ([phone]) within one week of discharge wherein she can obtain referral for both GI and general surgery to follow-up. Patient to also be provided Dr. Daigle's office number to schedule for outpatient eval for colonoscopy once she has completed PO antibiotic. Prescription provided on discharge: 1) ciprofloxacin 400mg PO BID (14 tabs/0) 2) Flagyl 500mg PO TID (24 tabs/0) 3) Bacid 1 tab PO daily (30 tabs/0) other boogie alternative probiotic yogurt if it is too expensive for her 4) Promethazine 12.5mg PO Q6H PRN nausea (1 week supply) Please note both UAs on record are not clean catches evidenced by the elevated squamous cells (dirty catch). This is a summary of patient's hospitalization. Please see EMR for further detail of records. Discharge Diagnoses: (1) Colitis-->stable Assessment and Plan: * GI (Dr. Ambrocio) environmental science professor-->help appreciated * Abdomen/Pelvis IV contrast: Cholelithiasis without evidence of cholecystitis. Suspicious for large bowel wall thickening. Correlate clinically for colitis. * No evidence of pancreatitis or appendicitis. Heterogeneous uterus likely contains fibroids.1.7 centimeter fat containing umbilical ventral hernia is noted * Patient to f/u with GI in 8 weeks for colonoscopy. * Patient to complete 7 days of antibiotic as outpatient. * 1) ciprofloxacin 400mg PO BID (14 tabs/0) * 2) Flagyl 500mg PO TID (24 tabs/0) * No ova and parasite noted. Stool is now formed. * nausea abated with PRN Status: Acute (2) Leukocytosis-->resolved Assessment and Plan: * Possible secondary to colitis * Patient is on IV abx to cover for colitis during hospitalization and discharged on PO (3) Asymptomatic Bacturia Assessment and Plan: * Patient is not symptomatic of urinary tract infection * UA is contaminated sample; have repeated sample which is also contaminated Status: Acute (4) Biliary Colic-->Stable Cholelithiasis-->chronic Assessment and Plan: * General surgery (Dr. Anderson)-->help appreciated * No acute intervention at this time * Imaging: Gallbladder US: Cholelithiasis identified within a distended gallbladder with the gallbladder otherwise unremarkable. Normal CBD caliber. No intrahepatic biliary dilatation or reported sonographic Ly sign. Remainder the examination appears unremarkable. * Patient advised to be followup outpatient surgery. * Patient also advised if she has increased biliary colic, frequency, persistent nausea come in to be evaluated via emergency room for acute cholecystitis. Status: chronic (5) Nausea & vomiting-->controlled Assessment and Plan: * Controlled with Promethazine Status: Acute (6) Diarrhea-->controlled Assessment and Plan: * Resolved; formed * Stool ova and parasite negative Status: Acute (7) Anxiety Assessment and Plan: * Patient seen and evaluated by psych * Patient can obtain referral via clinic for the [facility] for outpatient follow-up (8) Prophylactic measure Assessment and Plan:
[2017-12-30] MEDS ORDERED: Potassium Chloride 20 mEq ER Tab PO ONE (11:00)
[2017-12-30] MEDS: Ciprofloxacin 400mg/200ml D5W 400 MG/200 ML BAG IVPB SCH (11:30)
[2017-12-30 14:28] LABS: SQUAMOUS EPITHIAL 9 /hpf (0-5); URINE BILIRUBIN NEGATIVE (NEGATIVE); URINE BLOOD 3+ (NEGATIVE); URINE CLARITY Hazy (Clear); URINE COLOR Red (YELLOW); URINE GLUCOSE (UA) NORMAL (Normal); URINE LEUKOCYTE ESTERASE 1+ Leu/uL (Negative); URINE PROTEIN 1+ mg/dL (NEGATIVE); URINE UROBILINOGEN NORMAL mg/dL (0.2-1.0)
[2017-12-30 16:52] VITALS: BP 117/76; PULSE 68; TEMP 98.6; O2SAT 98
== END 2017-12-30 17:05 | disposition home or self-care (01) ==
LOC: C.ER 14:39 → C.9E 19:47 → C.3T 23:01
PROVIDERS: ADMIT Hospitalist; ATTEND Hospitalist
DX: K52.9 Noninfective gastroenteritis and colitis, unspecified (principal); N39.0 Urinary tract infection, site not specified; Z87.891 Personal history of nicotine dependence; K82.8 Other specified diseases of gallbladder; K43.9 Ventral hernia without obstruction or gangrene; F41.1 Generalized anxiety disorder; F12.90 Cannabis use, unspecified, uncomplicated; E11.9 Type 2 diabetes mellitus without complications
CPT/HCPCS: 36415; 74177; 76705; 80053; 81001; 83690; 83735; 84100; 84703; 85025; 87040; 87045; 87086; 87177; 87181; 87209; 87230; 89055; 96365; 96366; 96374; 99285; G0378; J0696; J0744; J1580; J1650; J1885; J2405; J3480; J7030; Q9967

== ENCOUNTER 2018-02-02 16:29 | Emergency (ER) | payer OTHER ==
[2018-02-02 16:29] VITALS: BMI 23.0
[2018-02-02 16:50] VITALS: TEMP 98.4
[2018-02-02] MEDS ORDERED: Sodium Chloride 0.9% 1,000 ML IV ONE (17:26)
--- NOTE | 2018-02-02 17:39 | C.PDOC ---
History Of Present Illness <Chandni Hendricks - Last Filed: 02/02/18 19:04> <Jessica Ward - Last Filed: 02/02/18 22:55> 47 y/o female with hx recent admission for ab pain, dx of colitis and gallstones on 12/28, returns to ed today for vomiting, nausea, diarrhea with upper abdominal pain after eating today. no fever or chills. no medication tried. pt has clinic appt tomorrow. (Chandni Hendricks) History Per: Patient History/Exam Limitations: no limitations Onset/Duration Of Symptoms: Hrs Current Symptoms Are (Timing): Still Present Quality Of Discomfort: "Pain" Associated Symptoms: Nausea, Vomiting, Diarrhea. denies: Fever, Chills <Chandni Hendricks - Last Filed: 02/02/18 19:04> <Jessica Ward - Last Filed: 02/02/18 22:55> Time Seen by Provider: 02/02/18 16:56 Chief Complaint (Nursing): GI Problem Past Medical History Reviewed: Historical Data, Nursing Documentation, Vital Signs - Medical History PMH: Anxiety Denies: Bipolar Disorder, Depression, Paranoia, Post Traumatic Stress Disorder, Schizophrenia Surgical History: No Surg Hx Family History: States: Unknown Family Hx - Social History Hx Alcohol Use: Yes Hx Substance Use: Yes (marijuana) - Immunization History Hx Tetanus Toxoid Vaccination: No Hx Influenza Vaccination: No Hx Pneumococcal Vaccination: No <Chandni Hendricks - Last Filed: 02/02/18 19:04> Vital Signs: Last Vital Signs Temp 98.4 F 02/02/18 21:27 Pulse 67 02/02/18 21:27 Resp 16 02/02/18 21:27 BP 139/92 H 02/02/18 21:27 Pulse Ox 99 02/02/18 21:27 Review Of Systems Constitutional: Negative for: Fever, Chills Gastrointestinal: Positive for: Nausea, Vomiting, Abdominal Pain, Diarrhea <Chandni Hendricks - Last Filed: 02/02/18 19:04> Physical Exam - Physical Exam Appears: Non-toxic, No Acute Distress, Other (uncomfortable ) Skin: Normal Color, Warm, Dry Head: Atraumatic, Normacephalic Eye(s): bilateral: Normal Inspection Oral Mucosa: Moist Neck: Supple Chest: Symmetrical, No Deformity, No Tenderness Cardiovascular: Rhythm Regular, No Murmur Respiratory: Normal Breath Sounds, No Rales, No Rhonchi, No Wheezing Gastrointestinal/Abdominal: Bowel Sounds (unremarkable ), Soft, Tenderness ( epigastric, and mild to right upper quadrant ), No Guarding, No Rebound, No Other (Ly's sign ) Extremity: Normal ROM, Capillary Refill (less than 2 seconds ) Neurological/Psych: Oriented x3, Normal Speech, Normal Cognition <Chandni Hendricks - Last Filed: 02/02/18 19:04> ED Course And Treatment - Laboratory Results Result Diagrams: 02/02/18 17:46 02/02/18 17:46 O2 Sat by Pulse Oximetry: 99 (on RA) Pulse Ox Interpretation: Normal <Chandni Hendricks - Last Filed: 02/02/18 19:04> - Laboratory Results Result Diagrams: 02/02/18 17:46 02/02/18 17:46 Pulse Ox Interpretation: Normal Reevaluation Time: 22:54 Reassessment Condition: Improved <Jessica Ward - Last Filed: 02/02/18 22:55> Medical Decision Making <Chandni Hendricks - Last Filed: 02/02/18 19:04> <Jessica Ward - Last Filed: 02/02/18 22:55> Medical Decision Making: Progress: Bloodwork, urinalysis, Abdomen US ordered and reviewed. Maalox PO, Pepcid IVP, Reglan IVP and IV Fluids given. (Chandni Hendricks) Upon provider reevaluation patient is feeling better, is medically stable, and requires no further treatment in the ED at this time. Patient will be discharged home with Rx for flagyl, cipro, reglan and toradol . Counseling was provided and all questions were answered regarding diagnosis and need for follow up with the referred clinic. There is agreement to discharge plan. Return if symptoms persist or worsen. (Jessica Ward) Disposition - Disposition Disposition Time: 19:06 <Chandni Hendricks - Last Filed: 02/02/18 19:04> Counseled Patient/Family Regarding: Studies Performed, Diagnosis, Need For Followup, Rx Given <Jessica Ward - Last Filed: 02/02/18 22:55> - Disposition Referrals: [facility] [Outside] [facility] [Outside] Disposition: HOME/ ROUTINE Condition: FAIR Additional Instructions: Please return if symptoms recur Prescriptions: Ciprofloxacin [Cipro] 1 tab PO BID #14 tab Metoclopramide [Reglan] 1 tab PO TID PRN #25 tab PRN Reason: Nausea/Vomiting Metronidazole [Flagyl] 500 mg PO TID #21 tablet traMADol [Ultram] 50 mg PO TID PRN #15 tab PRN Reason: Pain, Severe (8-10) Instructions: Colic (DC), Gallstones (DC) Forms: [employer] (Danish) - Clinical Impression Clinical Impression: Abdominal pain, Biliary colic, Gall stones - PA / MEDICAL CLAIMS MANAGER / Resident Statement MD/DO has reviewed & agrees with the documentation as recorded. - Scribe Statement The provider has reviewed the documentation as recorded by the Scribe (Rosalva Pham) <Chandni Hendricks - Last Filed: 02/02/18 19:04> <Jessica Ward - Last Filed: 02/02/18 22:55> - Scribe Statement All medical record entries made by the Scribe were at my direction and personally dictated by me. I have reviewed the chart and agree that the record accurately reflects my personal performance of the history, physical exam, medical decision making, and the department course for this patient. I have also personally directed, reviewed, and agree with the discharge instructions and disposition. (Chandni Hendricks) Physician Patient Turnover Patient Signed Over To: Jessica Ward Handoff Comments: f/u ab ultrasound, re-eval and dispo accordingly <Chandni Hendricks - Last Filed: 02/02/18 19:04>
[2018-02-02 17:49] LABS: BASO % 0.2 % (0.0-2.0); EOS % 0.1 % (0.0-4.0); HEMOGLOBIN 14.3 g/dL (11.0-16.0); LYMPH # 1.6 K/uL (1.0-4.3); LYMPH % 11.2 % (20.0-40.0); MEAN CELL VOLUME 93.9 fL (81.0-99.0); MEAN CORPUSCULAR HEMOGLOBIN 32.5 pg (27.0-31.0); MEAN CORPUSCULAR HGB CONC 34.6 g/dL (33.0-37.0); MEAN PLATELET VOLUME 8.5 fL (7.2-11.7); MONO # 0.8 K/uL (0.0-0.8); MONO % 5.6 % (0.0-10.0); NEUT # 11.9 K/uL (1.8-7.0); NEUT % 82.9 % (50.0-75.0); RBC 4.4 Mil/uL (3.80-5.20); RED CELL DISTRIBUTION WIDTH 12.6 % (11.5-14.5); WHITE BLOOD COUNT 14.4 K/uL (4.8-10.8)
[2018-02-02] MEDS ORDERED: Sodium Chloride 0.9% 1,000 ML ONE (17:53)
[2018-02-02 18:03] LABS: ALB/GLOB RATIO 1.7 (1.0-2.1); ALBUMIN 5.1 g/dL (3.5-5.0); ALT/SGPT 29 U/L (9-52); AST/SGOT 22 U/L (14-36); BLOOD UREA NITROGEN 11 mg/dL (7-17); CALCIUM 10.2 mg/dl (8.6-10.4); GFR NON-AFRICAN AMERICAN > 60; LIPASE 154 U/L (23-300)
[2018-02-02] MEDS ORDERED: Aluminum Hydroxide/Magnesium Hydroxide Susp (30 mL) PO STA (18:19)
[2018-02-02] MEDS ORDERED: Aluminum Hydroxide/Magnesium Hydroxide Susp (30 mL) ONE (18:31)
[2018-02-02] MEDS ORDERED: Piperacillin/Tazobact 3.375 gm 100 ML IVPB STA (19:03)
[2018-02-02 19:16] LABS: SQUAMOUS EPITHIAL 3 /hpf (0-5); URINE AMORPHOUS SEDIMENT FEW /ul (<OCC); URINE BACTERIA RARE (<OCC); URINE BILIRUBIN NEGATIVE (NEGATIVE); URINE BLOOD NEGATIVE (NEGATIVE); URINE CLARITY Hazy (Clear); URINE COLOR Yellow (YELLOW); URINE GLUCOSE (UA) NORMAL (Normal); URINE LEUKOCYTE ESTERASE NEG Leu/uL (Negative); URINE PROTEIN 1+ mg/dL (NEGATIVE); URINE UROBILINOGEN NORMAL mg/dL (0.2-1.0)
[2018-02-02 19:46] LABS: VENOUS BLOOD GAS BASE EXCESS -5.6 mmol/L (0.0-2.0); VENOUS BLOOD GAS PCO2 30 mmHg (40-60); VENOUS BLOOD GAS PO2 33 mm/Hg (30-55); VENOUS BLOOD PH 7.39 (7.32-7.43)
[2018-02-02] MEDS ORDERED: Piperacillin/Tazobact 3.375 gm 100 ML IVPB ONE (19:59)
[2018-02-02 23:23] VITALS: BP 132/70; PULSE 70; RESP 14; O2SAT 100
--- NOTE | 2018-02-03 11:45 | US ---
Date of service: 02/02/2018 HISTORY: Right upper quadrant, epigastric abdominal pain COMPARISON: 12/28/2017 TECHNIQUE: Sonographic evaluation of the right upper quadrant of the abdomen. FINDINGS: LIVER: Measures 16.2 cm in length. Patent portal vein. Portal venous flow: Hepatopetal. Unremarkable echogenicity of the liver parenchyma. No mass. No intrahepatic bile duct dilatation. GALLBLADDER: Cholelithiasis. Negative study for gallbladder wall thickening, pericholecystic fluid, sonographic Ly's sign. COMMON BILE DUCT: Measures 2.5 mm. No stones. No dilatation. PANCREAS: Unremarkable as visualized. No mass. No ductal dilatation. RIGHT KIDNEY: Measures 4.1 x 9.4 cm in length. Normal echogenicity. No calculus, mass, or hydronephrosis. AORTA: No aneurysmal dilatation. IVC: Unremarkable. OTHER FINDINGS: None . IMPRESSION: Cholelithiasis. No sonographic evidence of acute cholecystitis. Concordant findings (preliminary report) provided by stef.
== END 2018-02-02 23:22 | disposition home or self-care (01) ==
LOC: C.ER 16:29
DX: K80.70 Calculus of gallbladder and bile duct without cholecystitis without obstruction (principal); R10.13 Epigastric pain
CPT/HCPCS: 76705; 80053; 81001; 82803; 83690; 85025; 87086; 96361; 96365; 96375; 99285; J2060; J2405; J2543; J2765; J7030

== ENCOUNTER 2018-08-21 06:24 | Emergency (ER) | payer OTHER ==
[2018-08-21 06:24] VITALS: BMI 23.0
[2018-08-21] MEDS ORDERED: Sodium Chloride 0.9% 1,000 ML IV ONE (06:43)
[2018-08-21] MEDS ORDERED: Sodium Chloride 0.9% 1,000 ML ONE ×2 (06:43→07:47)
[2018-08-21] MEDS ORDERED: Sodium Chloride 0.9% 1,000 ML IV STA (07:28)
[2018-08-21 07:51] LABS: BASO % 0.3 % (0.0-2.0); HEMOGLOBIN 13.2 g/dL (11.0-16.0); LYMPH # 0.6 K/uL (1.0-4.3); LYMPH % 5.8 % (20.0-40.0); MEAN PLATELET VOLUME 9.4 fL (7.2-11.7); MONO # 0.3 K/uL (0.0-0.8); MONO % 2.8 % (0.0-10.0); NEUT # 10.1 K/uL (1.8-7.0); NEUT % 91.1 % (50.0-75.0); PLATELET COUNT 339 K/uL (130-400); RBC 3.98 Mil/uL (3.80-5.20); RED CELL DISTRIBUTION WIDTH 12.8 % (11.5-14.5); WHITE BLOOD COUNT 11.1 K/uL (4.8-10.8)
[2018-08-21 08:00] LABS: HCG,QUALITATIVE URINE NEGATIVE (NEGATIVE); SQUAMOUS EPITHIAL 14 /hpf (0-5); URINE BILIRUBIN NEGATIVE (NEGATIVE); URINE BLOOD NEGATIVE (NEGATIVE); URINE CLARITY Hazy (Clear); URINE COLOR Yellow (YELLOW); URINE GLUCOSE (UA) NORMAL (Normal); URINE LEUKOCYTE ESTERASE TRACE Leu/uL (Negative); URINE PROTEIN 1+ mg/dL (NEGATIVE); URINE UROBILINOGEN NORMAL mg/dL (0.2-1.0)
[2018-08-21 08:12] LABS: ALB/GLOB RATIO 1.9 (1.0-2.1); ALBUMIN 5.1 g/dL (3.5-5.0); ALT/SGPT 25 U/L (9-52); AST/SGOT 36 U/L (14-36); BLOOD UREA NITROGEN 15 mg/dL (7-17); CALCIUM 10.4 mg/dl (8.6-10.4); GFR NON-AFRICAN AMERICAN > 60; LIPASE 60 U/L (23-300)
[2018-08-21 08:38] LABS: BANDS 2 % (0-2); LYMPHOCYTE 5 % (20-40); MONOCYTE 2 % (0-10); NEUTROPHIL 91 % (50-75); PLATELET ESTIMATE NORMAL (NORMAL); TOTAL CELLS COUNTED 100
[2018-08-21 08:41] LABS: ANISOCYTOSIS SLIGHT
[2018-08-21 08:42] LABS: LARGE PLATELETS PRESENT
[2018-08-21 08:43] LABS: TOXIC GRANULATION PRESENT
--- NOTE | 2018-08-21 11:38 | US ---
Date of service: 08/21/2018 HISTORY: abd pain, pls do RUQ COMPARISON: None. TECHNIQUE: Sonographic evaluation of the right upper quadrant of the abdomen. FINDINGS: LIVER: Measures cm in length. 16.4 echogenicity of the liver parenchyma. No mass. No intrahepatic bile duct dilatation. GALLBLADDER: Cholelithiasis. No mural thickening. No pericholecystic fluid. Negative sonographic Ly sign. COMMON BILE DUCT: Measures 4 mm. No stones. No dilatation. PANCREAS: Unremarkable as visualized. No mass. No ductal dilatation. RIGHT KIDNEY: Measures 9.3 cm in length. Normal echogenicity. No calculus, mass, or hydronephrosis. AORTA: No aneurysmal dilatation. IVC: Unremarkable. OTHER FINDINGS: None . IMPRESSION: Cholelithiasis without evidence of cholecystitis.
--- NOTE | 2018-08-21 11:47 | C.PDOC ---
History Of Present Illness 47 y/o female presents to the ED with complaints of abdominal pain, vomiting, and diarrhea since last night. States that she has recurrent episodes of symptoms. Of patient was seen here on 02/02/2018 for similar presentation, and had CT scan showing colitis and US showing gall stones. Patient admits she has not followed up regularly with any doctor. Otherwise she denies any fevers, chills, urinary complaints, dark or bloody stools. Time Seen by Provider: 08/21/18 07:06 Chief Complaint (Nursing): Abdominal Pain History Per: Patient History/Exam Limitations: no limitations Onset/Duration Of Symptoms: Days (x 1) Current Symptoms Are (Timing): Still Present Location Of Pain/Discomfort: Diffuse Associated Symptoms: Nausea, Vomiting, Diarrhea Past Medical History Reviewed: Historical Data, Nursing Documentation, Vital Signs Vital Signs: Last Vital Signs Temp 97.5 F L 08/21/18 07:15 Pulse 88 08/21/18 10:42 Resp 16 08/21/18 10:42 BP 111/69 08/21/18 10:42 Pulse Ox 100 08/21/18 08:53 - Medical History PMH: Anxiety Denies: Bipolar Disorder, Depression, Paranoia, Post Traumatic Stress Disorder, Schizophrenia Family History: States: Unknown Family Hx - Social History Hx Alcohol Use: No Hx Substance Use: Yes (marijuana) - Immunization History Hx Tetanus Toxoid Vaccination: No Hx Influenza Vaccination: No Hx Pneumococcal Vaccination: No Review Of Systems Except As Marked, All Systems Reviewed And Found Negative. Constitutional: Negative for: Fever, Chills Cardiovascular: Negative for: Chest Pain Respiratory: Negative for: Shortness of Breath Gastrointestinal: Positive for: Nausea, Vomiting, Abdominal Pain, Diarrhea. Negative for: Melena, Hematochezia Genitourinary: Negative for: Dysuria, Frequency, Hematuria, Vaginal Bleeding Musculoskeletal: Negative for: Back Pain Skin: Negative for: Rash Neurological: Negative for: Weakness, Numbness Psych: Positive for: Anxiety Physical Exam - Physical Exam Appears: Non-toxic, No Acute Distress, Other (Appears anxious) Skin: Warm, Dry, No Rash Head: Atraumatic, Normacephalic Eye(s): bilateral: Normal Inspection, PERRL, EOMI Oral Mucosa: Moist Neck: Normal ROM Chest: Symmetrical Cardiovascular: Rhythm Regular, No Murmur Respiratory: Normal Breath Sounds, No Accessory Muscle Use, Other (No respiratory distress) Gastrointestinal/Abdominal: Soft, Tenderness (Diffuse tenderness), No Guarding, No Rebound Back: No CVA Tenderness, No Vertebral Tenderness Extremity: Bilateral: Atraumatic, Normal Color And Temperature, Normal ROM Neurological/Psych: Oriented x3, Normal Speech Gait: Steady ED Course And Treatment - Laboratory Results Result Diagrams: 08/21/18 07:54 08/21/18 07:49 Lab Results: Total Bilirubin 1.0 mg/dL (0.2-1.3) 08/21/18 07:49 AST 36 U/L (14-36) D 08/21/18 07:49 ALT 25 U/L (9-52) 08/21/18 07:49 Alkaline Phosphatase 67 U/L (38-126) 08/21/18 07:49 Total Protein 7.8 g/dL (6.3-8.3) 08/21/18 07:49 Albumin 5.1 g/dL (3.5-5.0) H 08/21/18 07:49 Globulin 2.7 gm/dL (2.2-3.9) 08/21/18 07:49 Albumin/Globulin Ratio 1.9 (1.0-2.1) 08/21/18 07:49 Lipase 60 U/L (23-300) 08/21/18 07:49 Urine Color Yellow (YELLOW) 08/21/18 07:49 Urine Clarity Hazy (Clear) 08/21/18 07:49 Urine pH 7.0 (5.0-8.0) 08/21/18 07:49 Ur Specific [place] 1.024 (1.003-1.030) 08/21/18 07:49 Urine Protein 1+ mg/dL (NEGATIVE) H 08/21/18 07:49 Urine Glucose (UA) Normal mg/dL (Normal) 08/21/18 07:49 Urine Ketones 2+ mg/dL (NEGATIVE) H 08/21/18 07:49 Urine Blood Negative (NEGATIVE) 08/21/18 07:49 Urine Nitrate Negative (NEGATIVE) 08/21/18 07:49 Urine Bilirubin Negative (NEGATIVE) 08/21/18 07:49 Urine Urobilinogen Normal mg/dL (0.2-1.0) 08/21/18 07:49 Ur Leukocyte Esterase Trace Laura/uL (Negative) 08/21/18 07:49 Urine WBC (Auto) 3 /hpf (0-5) 08/21/18 07:49 Urine RBC (Auto) 1 /hpf (0-3) 08/21/18 07:49 Ur Squamous Epith Cells 14 /hpf (0-5) H 08/21/18 07:49 Urine HCG, Qual Negative (NEGATIVE) 08/21/18 07:49 Urine HCG, Qual Negative (NEGATIVE) 08/21/18 07:49 ECG: Interpreted By De ECG Rhythm: Sinus Bradycardia Interpretation Of ECG: Premature atrial complexes. No ST elevations or depressions Rate From EC O2 Sat by Pulse Oximetry: 100 (RA) Pulse Ox Interpretation: Normal - CT Scan/US Abdominal US Other Rad Studies (CT/US): Read By Radiologist, Radiology Report Reviewed CT/US Interpretation: Accession No. : [id number]. Patient Name / ID : SHARMILA CHAVEZ / [id number]. Exam Date : 08/21/2018 08:16:27 ( Approved ). Study Comment : Sex / Age : F / 47Y. Creator : Basilio Landon MD. Dictator : Basilio Landon MD. Live Hanger : [employer] Turret Lathe Operator : Teto Landon MD. Approver2 : Report Date : 08/21/2018 11:35:21. My Comment : . Date of service: 08/21/2018. HISTORY: abd pain, pls do RUQ. COMPARISON: None. TECHNIQUE: Sonographic evaluation of the right upper quadrant of the abdomen. FINDINGS: LIVER: Measures cm in length. 16.4 echogenicity of the liver parenchyma. No mass. No intrahepatic bile duct dilatation. GALLBLADDER: Cholelithiasis. No mural thickening. No pericholecystic fluid. Negative sonographic Ly sign. COMMON BILE DUCT: Measures 4 mm. No stones. No dilatation. PANCREAS: Unremarkable as visualized. No mass. No ductal dilatation. RIGHT KIDNEY: Measures 9.3 cm in length. Normal echogenicity. No calculus, mass, or hydronephr osis. AORTA: No aneurysmal dilatation. IVC: Unremarkable. OTHER FINDINGS: None . IMPRESSION: Cholelithiasis without evidence of cholecystitis. Progress Note: Blood work and urine sent to the lab for analysis. Abdominal US ordered to r/o cholecystitis. Patient given 1 L IV fluids, 4 mg IV Zofran, and 40 mg IV protonix. 8:05am Patient requesting medication for anxiety. Given 1 mg PO Ativan. On re-evaluation patient feels better, no longer c/o abdominal pain/vomiting. Patient is stable to be d/c home with PMD follow up. Disposition - Disposition Referrals: [facility] [Outside] Disposition: HOME/ ROUTINE Disposition Time: 12:15 Condition: IMPROVED Additional Instructions: Follow up in Clinic and with welt trimming machine operator. Colonoscopy and Upper endoscopy are recommended as outpatient work up. Return to ED if feel worse. Prescriptions: Dicyclomine [Bentyl] 20 mg PO TID #30 tab Famotidine [Pepcid] 20 mg PO BID #20 tab Ondansetron ODT [Zofran ODT] 1 odt PO BID PRN #6 odt PRN Reason: Nausea/Vomiting Instructions: Acute Abdomen (Belly Pain), Adult (DC), Gallstones (DC) Forms: [employer] (Armenian) - Clinical Impression Clinical Impression: Abdominal pain, Cholelithiasis - PA / OVEN HEATER / Resident Statement MD/DO has reviewed & agrees with the documentation as recorded. - Scribe Statement The provider has reviewed the documentation as recorded by the Scribaracelis Morton All medical record entries made by the Richardibaracelis were at my direction and personally dictated by me. I have reviewed the chart and agree that the record accurately reflects my personal performance of the history, physical exam, m edical decision making, and the department course for this patient. I have also personally directed, reviewed, and agree with the discharge instructions and disposition.
[2018-08-21 12:40] VITALS: BP 114/69; PULSE 74; RESP 20; TEMP 97.9
[2018-08-21 14:56] VITALS: O2SAT 100
--- NOTE | 2018-08-22 09:35 | CARD ---
APPROVED REPORT Date of service: 08/21/2018 EKG Measurement Heart [id number] <Conclusion> Sinus bradycardia with premature atrial complexes Otherwise normal ECG
== END 2018-08-21 12:47 | disposition home or self-care (01) ==
LOC: C.ER 06:24
DX: K80.20 Calculus of gallbladder without cholecystitis without obstruction (principal)
CPT/HCPCS: 76705; 80053; 81001; 81025; 83690; 84703; 85025; 93005; 96361; 96374; 96375; 99285; C9113; J2405; J7030